=== PATIENT | female | born 1950 | race Hispanic/Latino ===

== ENCOUNTER 2017-08-10 21:26 | Emergency (ER) | payer BC, MEDICARE ==
--- NOTE | 2017-08-10 21:50 | Emergency Department Report ---
ED Neuro Deficit HPI - General Stated Complaint: POSS STROKE Time Seen by Provider: 08/10/17 21:41 Source: patient, EMS Mode of arrival: Stretcher Limitations: Altered Mental Status - History of Present Illness Initial Comments: 66-year-old female with a past medical history of hypertension, TIA, hypothyroidism without alteration in mental status approximately 2 hours prior to arrival. Patient states he came back into the living room and found patient cursing at him and acting abnormal. Upon arrival patient is oriented to self only and able to follow some commands. She denies pain. She is unable to provide any history of present illness only able to answer basic questions with a delay. Patient presents with medication does not appear to be on any anticoagulation meds. There isn't any aspirin at her medication in her bag. - Related Data Home Medications: Previous Rx's Medication Instructions Recorded Last Taken Type Ibuprofen [Motrin] 600 mg PO Q8H PRN #40 tablet 04/03/15 Unknown Rx traMADol [Ultram] 50 mg PO Q6HR PRN #20 tablet 04/03/15 Unknown Rx Allergies/Adverse Reactions: Allergies Allergy/AdvReac Type Severity Reaction Status Date / Time No Known Allergies Allergy Unverified 04/03/15 15:19 ED Review of Systems ROS: Stated complaint: POSS STROKE Other details as noted in HPI Comment: Unobtainable due to pts medical conditions ED Past Medical Hx - Past Medical History Hx Hypertension: Yes Hx CVA: Yes Additional medical history: THYROID - Surgical History Hx Breast Surgery: Yes (RIGHT MASTECTOMY) Additional Surgical History: RIGHT EAR - Social History Smoking Status: Current Every Day Smoker Substance Use Type: None - Medications Home Medications: Home Medications Medication Instructions Recorded Confirmed Last Taken Type Ibuprofen [Motrin] 600 mg PO Q8H PRN #40 tablet 04/03/15 Unknown Rx traMADol [Ultram] 50 mg PO Q6HR PRN #20 tablet 04/03/15 Unknown Rx ED Neuro Physical Exam - General General appearance: alert Suspected Stroke: Yes - NIHSS Assessment Interval: Baseline 1a. Level of Consciousness: alert 1b. LOC Questions: answers 1 question correctly 1c. LOC Commands: performs 1 task correctly 2. Best Gaze: forced deviation 3. Visual: partial hemianopia (right eye does not blink on confrontation) 4. Facial Palsy: normal symmetrical movement 5b. Motor Arm Right: some gravity effort 5a. Motor Arm Left: no drift 6a. Motor Leg Left: no drift 6b. Motor Leg Right: some gravity effort 7. Limb Ataxia: absent 8. Sensory: normal (grossly) 9. Best Language: no aphasia 10. Dysarthria: mild/moderate dysarthria 11. Extinction/Inattention: no abnormality Total Score: 10 Stroke Severity: Moderate Stroke - Other Other exam information: General: No limitations, patient is alert in no acute distress Head exam: Atraumatic, normocephalic Eyes exam: Normal appearance, pupils equal reactive to light, left gaze preference not overcome with oculocephalic reflex ENT: Moist mucous membrane, normal oropharynx Neck exam: Normal inspection, full range of motion, no meningismus nontender Respiratory exam: Clear to auscultation bilateral, no wheezes, rales, crackles Cardiovascular: Normal rate and rhythm, normal heart sounds Abdomen: Soft, nondistended, and nontender, with normal bowel sounds, no rebound, or guarding Extremity: Full range of motion normal inspection no deformity Back: Normal Inspection, full range of motion, no tenderness Neurologic: Alert, oriented x3, cranial nerves intact, no motor or sensory deficit Psychiatric: normal affect, normal mood Skin: Warm, dry, intact ED Course - Consultations Consultation #1: 08/10/17 22:[address] Gloria on-call account support rep with [facility], [place] was accepted patient for transfer. Awaiting callback from neurosurgeon 08/10/17 22:35 Case d/w Dr Pedroza Neurosurgeon - Lab Data Result diagrams: 08/10/17 21:53 08/10/17 21:53 Lab Results 08/10/17 08/10/17 08/10/17 Range/Units 21:53 21:53 21:53 WBC 13.4 H (4.5-11.0) K/mm3 RBC 5.14 H (3.65-5.03) M/mm3 Hgb 15.6 H (10.1-14.3) gm/dl Hct 48.0 H (30.3-42.9) % MCV 93 (79-97) fl MCH 30 (28-32) pg MCHC 33 (30-34) % RDW 14.8 (13.2-15.2) % Plt Count 365 (140-440) K/mm3 Lymph % (Auto) 8.6 L (13.4-35.0) % [place] % (Auto) 4.5 (0.0-7.3) % Eos % (Auto) 0.0 (0.0-4.3) % Baso % (Auto) 0.5 (0.0-1.8) % Lymph # 1.1 L (1.2-5.4) K/mm3 [place] # 0.6 (0.0-0.8) K/mm3 Eos # 0.0 (0.0-0.4) K/mm3 Baso # 0.1 (0.0-0.1) K/mm3 Seg Neutrophils % 86.4 H (40.0-70.0) % Seg Neutrophils # 11.6 H (1.8-7.7) K/mm3 PT 12.5 (12.2-14.9) Sec. INR 0.89 (0.87-1.13) APTT 26.9 (24.2-36.6) Sec. Thrombin Time 16.4 (15.1-19.6) Sec. Sodium 143 (137-145) mmol/L Potassium 4.2 (3.6-5.0) mmol/L Chloride 100.2 (98-107) mmol/L Carbon Dioxide 29 (22-30) mmol/L Anion Gap 18 mmol/L BUN 15 (7-17) mg/dL Creatinine 0.7 (0.7-1.2) mg/dL Estimated GFR > 60 ml/min BUN/Creatinine Ratio 21 % Glucose 131 H (65-100) mg/dL Calcium 10.5 H (8.4-10.2) mg/dL Troponin T < 0.010 (0.00-0.029) ng/mL - EKG Data -: EKG Interpreted by [facility] EKG shows normal: sinus rhythm, axis (qrs 43), QRS complexes (qrsd 90), ST-T waves (minimal diffuse st depression) Rate: normal (93) When compared to previous EKG there are: previous EKG unavailable - Radiology Data Radiology results: report reviewed CT head noncontrast irregular hyperdense fluid collection in the left parietal occipital region is consistent with intracerebral hemorrhage with extension into the left lateral ventricle. Additional foci of hyperdensity are also consistent with acute hemorrhages involving bilateral occipital and high parietal regions - Medical Decision Making altered mental status secondary to intracerebral hemorrhage At this time patient is alert and protecting her airway therefore was not intubated Cardene drip initiated for blood pressure control with goal of systolic 150 Keppra 1 g given for seizure prophylaxis Patient has been accepted to [facility] [place] - Differential Diagnosis ischemic stroke, hemorrhagic stroke, seizure, encephalopathy Critical Care Time: Yes Critical care time in (mins) excluding proc time.: 35 Critical care attestation.: If time is entered above; I have spent that time in minutes in the direct care of this critically ill patient, excluding procedure time. ED Disposition Clinical Impression: Intracerebral hemorrhage, Uncontrolled hypertension, Neurological deficit present Disposition: DC/TX-70 ANOTHER TYPE HLTHCARE Is pt being admited?: No Condition: Stable Time of Disposition: 22:26 (accepted [facility], Dr Gloria/Kasia)
[2017-08-10] MEDS ORDERED: KEPPRA 1,000 MG/NS 0.75% 100ML 1,000 MG/100 ML BAG IV ONE (22:00)
[2017-08-10] MEDS ORDERED: CARDENE 50 MG in NACL 0.9% 250ML 230 ML IV SCH (22:00)
[2017-08-10 22:12] LABS: Basophils # (Auto) 0.1 K/mm3 (0.0-0.1); Basophils % (Auto) 0.5 % (0.0-1.8); Hemoglobin 15.6 gm/dl (10.1-14.3); Lymphocytes # (Auto) 1.1 K/mm3 (1.2-5.4); Lymphocytes % (Auto) 8.6 % (13.4-35.0); Mean Corpuscular HGB Conc 33 % (30-34); Mean Corpuscular Hemoglobin 30 pg (28-32); Mean Corpuscular Volume 93 fl (79-97); Monocytes # (Auto) 0.6 K/mm3 (0.0-0.8); Monocytes % (Auto) 4.5 % (0.0-7.3); Platelet Count 365 K/mm3 (140-440); Red Blood Count 5.14 M/mm3 (3.65-5.03); Red Cell Distribution Width 14.8 % (13.2-15.2)
[2017-08-10 22:19] LABS: INR 0.89 (0.87-1.13); Partial Thromboplastin Time 26.9 Sec. (24.2-36.6)
[2017-08-10 22:20] LABS: Thrombin Time 16.4 Sec. (15.1-19.6)
[2017-08-10 22:22] LABS: BUN/Creatinine Ratio 21; Blood Urea Nitrogen 15 mg/dL (7-17); Calcium 10.5 mg/dL (8.4-10.2); Hemolysis Index 17
[2017-08-11] MEDS ORDERED: ZOFRAN ONE (00:38)
[2017-08-11 01:19] VITALS: BP 188/97
[2017-08-11] MEDS ORDERED: ZOFRAN IV ONE (01:19)
--- NOTE | 2017-08-11 09:56 | Cat Scan Report ---
FINAL REPORT PROCEDURE: CT HEAD WO CONTRAST TECHNIQUE: Computerized tomography of the head was performed without contrast material. HISTORY: RT SIDE WEAKNESS, STROKE PROTOCOL COMPARISON: No prior studies are available for comparison. FINDINGS: An irregular hyperdense fluid collection is noted in the left posterior parieto-occipital region with mild degree mass effect on the surrounding brain parenchyma. It is extending into the left ventricular atrium and occipital horn. Small irregular hyperdense lesions are also noted in bilateral occipital lobes measuring 0.9 centimeters on the left and 0.7 centimeters on the right. Additional small hyperdense foci are noted involving bilateral high parietal gyri. Visualized bilateral paranasal sinuses and mastoid air cells are clear. Bones are intact.. Moderate degree bilateral cerebral non specific white matter hypodensity is noted most likely representing chronic microangiopathy. IMPRESSION: Irregular hyperdense fluid collection in the left parieto-occipital region is consistent with the intra cerebral hemorrhage with the extension into left lateral ventricle. Additional foci of hyperdensity are also consistent with acute hemorrhages involving bilateral occipital and high parietal regions.
== END 2017-08-11 00:40 | disposition other institution (70) ==
LOC: ED 21:26
DX: I61.9 Nontraumatic intracerebral hemorrhage, unspecified (principal); I10 Essential (primary) hypertension; R29.818 Other symptoms and signs involving the nervous system; F17.200 Nicotine dependence, unspecified, uncomplicated; Z90.11 Acquired absence of right breast and nipple
CPT/HCPCS: 36415; 70450; 80048; 84484; 85025; 85610; 85670; 85730; 93005; 93010; 96365; 96366; 96368; 96375; 99291; J1953; J2405; J7050

== ENCOUNTER 2017-12-09 17:50 | Emergency (ER) | payer MEDICARE ==
[~2017-12-09 17:50] MED LIST: AMIDATE IV ONE; ZEMURON IV ONE
[2017-12-09] MEDS ORDERED: NACL 0.9% 1000 ML 1,000 ML IV ONE (18:21)
[2017-12-09 18:47] LABS: Hematocrit 51.5 % (30.3-42.9); Hemoglobin 16.8 gm/dl (10.1-14.3); Mean Corpuscular HGB Conc 33 % (30-34); Mean Corpuscular Hemoglobin 31 pg (28-32); Mean Corpuscular Volume 94 fl (79-97); Platelet Count 438 K/mm3 (140-440); Red Cell Distribution Width 13.7 % (13.2-15.2)
--- NOTE | 2017-12-09 19:09 | Emergency Department Report ---
ED N/V/D HPI - General Chief complaint: Nausea/Vomiting/Diarrhea Stated complaint: VOMITING 2XDAYS Time Seen by Provider: 12/09/17 19:09 Source: family, EMS Mode of arrival: Stretcher Limitations: Other - History of Present Illness Initial comments: Patient has been having a sudden onset of nausea and vomiting since yesterday. The family took her to her primary doctor today and her WBC count was 22,000 at the clinic. Patients doctor recommend taking her to the emergency room. Patients daughter also said the patient has been more altered than usual since yesterday and she has been vomiting. Patient has a baseline history of dementia and cannot give medical history at this time. MD complaint: nausea, vomiting -: Sudden Description of Vomiting: bilious Associated Abdominal Pain: No Severity: Unable to Determine Improves with: none Worsens with: none Associated Symptoms: loss of appetite, nausea/vomiting - Related Data Home Medications Medication Instructions Recorded Confirmed Last Taken Levothyroxine 75 mcg PO DAILY 08/10/17 08/10/17 Unknown Lisinopril 10 mg PO DAILY 08/10/17 08/10/17 Unknown Zolpidem 5 mg PO HS PRN 08/10/17 08/10/17 Unknown Allergies Allergy/AdvReac Type Severity Reaction Status Date / Time No Known Allergies Allergy Unverified 12/09/17 18:21 ED Review of Systems ROS: Stated complaint: VOMITING 2XDAYS Other details as noted in HPI Comment: Unobtainable due to pts medical conditions Gastrointestinal: nausea, vomiting Neurological: confusion, other (Altered mental status) ED Past Medical Hx - Past Medical History Previous Medical History?: Yes Hx Hypertension: Yes Hx CVA: Yes Hx Dementia: Yes Additional medical history: Hep C, hyperlipidemia, hypothyroidism - Surgical History Past Surgical History?: Yes Hx Breast Surgery: Yes (RIGHT MASTECTOMY) Additional Surgical History: RIGHT EAR - Social History Smoking Status: Former Smoker Substance Use Type: None - Medications Home Medications: Home Medications Medication Instructions Recorded Confirmed Last Taken Type Levothyroxine 75 mcg PO DAILY 08/10/17 08/10/17 Unknown History Lisinopril 10 mg PO DAILY 08/10/17 08/10/17 Unknown History Zolpidem 5 mg PO HS PRN 08/10/17 08/10/17 Unknown History ED Physical Exam - General Limitations: Altered Mental Status, Other General appearance: alert, lethargic - Head Head exam: Present: atraumatic, normocephalic, normal inspection - Eye Eye exam: Present: normal appearance Pupils: Present: normal accommodation - ENT ENT exam: Present: mucous membranes dry - Neck Neck exam: Present: normal inspection, full ROM. Absent: tenderness - Respiratory Respiratory exam: Present: normal lung sounds bilaterally. Absent: respiratory distress - Cardiovascular Cardiovascular Exam: Present: normal rhythm, tachycardia, normal heart sounds - GI/Abdominal GI/Abdominal exam: Present: soft, normal bowel sounds. Absent: distended, tenderness, guarding, rebound, rigid - Rectal Rectal exam: Present: deferred - Extremities Exam Extremities exam: Present: normal inspection, full ROM, normal capillary refill - Back Exam Back exam: Present: normal inspection, full ROM - Neurological Exam Neurological exam: Present: alert, altered, other (Disoriented. GCS = 10) - Psychiatric Psychiatric exam: Present: flat affect - Skin Skin exam: Present: warm, dry, intact, normal color. Absent: rash ED Course Vital Signs 12/09/17 12/09/17 12/09/17 18:11 19:15 21:39 Temperature 97.6 F 100.7 F H Pulse Rate 88 103 H 104 H Respiratory 16 25 H 15 Rate Blood Pressure 166/101 Blood Pressure 169/116 165/95 [Left] O2 Sat by Pulse 93 96 100 Oximetry 12/09/17 22:36 Temperature Pulse Rate 134 H Respiratory 16 Rate Blood Pressure Blood Pressure 160/102 [Left] O2 Sat by Pulse 100 Oximetry - Consultations Consultation #1: 12/09/17 22:59 I consulted the Neuro ICU doctor oncology social worker Dr Timmons. He recommend transferring patient to [facility] for higher level of care. - Intubation Time Out Performed: Yes Sedative: Etomidate Mg Given: 10 Paralytic: Rocuronium Mg Given: 70 Laryngoscope: Robinson Size: 4 Assist Device Used: other (Glidescope) ET Tube Size: 7 Tube Secured Depth (cm): 22 Tube Secured Location: lips Tube Placement Confirmation: visualized tube passing t, equal breath sounds bilat, no breath sounds over epi, confirmation by capnometr Patient Tolerated Procedure: well Intubation Complications: none ED Medical Decision Making - Lab Data Result diagrams: 12/09/17 18:30 12/09/17 19:48 Lab Results 10/23/18 10/23/18 10/23/18 Range/Units 18:30 18:30 19:23 WBC 21.9 H (4.5-11.0) K/mm3 RBC 5.50 H (3.65-5.03) M/mm3 Hgb 16.8 H (10.1-14.3) gm/dl Hct 51.5 H (30.3-42.9) % MCV 94 (79-97) fl MCH 31 (28-32) pg MCHC 33 (30-34) % RDW 13.7 (13.2-15.2) % Plt Count 438 (140-440) K/mm3 Add Manual Diff Complete Total Counted 200 Seg Neuts % (Manual) 89.5 H (40.0-70.0) % Band Neutrophils % 0 % Lymphocytes % (Manual) 6.5 L (13.4-35.0) % Reactive Lymphs % (Man) 0 % Monocytes % (Manual) 3.5 (0.0-7.3) % Eosinophils % (Manual) 0 (0.0-4.3) % Basophils % (Manual) 0 (0.0-1.8) % Metamyelocytes % 0.5 % Myelocytes % 0 % Promyelocytes % 0 % Blast Cells % 0 % Nucleated RBC % Not Reportable Seg Neutrophils # Man 19.6 H (1.8-7.7) K/mm3 Band Neutrophils # 0.0 K/mm3 Lymphocytes # (Manual) 1.4 (1.2-5.4) K/mm3 Abs React Lymphs (Man) 0.0 K/mm3 Monocytes # (Manual) 0.8 (0.0-0.8) K/mm3 Eosinophils # (Manual) 0.0 (0.0-0.4) K/mm3 Basophils # (Manual) 0.0 (0.0-0.1) K/mm3 Metamyelocytes # 0.1 K/mm3 Myelocytes # 0.0 K/mm3 Promyelocytes # 0.0 K/mm3 Blast Cells # 0.0 K/mm3 WBC Morphology Not Reportable Hypersegmented Neuts Not Reportable Hyposegmented Neuts Not Reportable Hypogranular Neuts Not Reportable Smudge Cells Not Reportable Toxic Granulation Not Reportable Toxic Vacuolation Not Reportable Dohle Bodies Not Reportable Pelger-Huet Anomaly Not Reportable Ulices Rods Not Reportable Platelet Estimate Consistent w auto Clumped Platelets Not Reportable Plt Clumps, EDTA Not Reportable Large Platelets Not Reportable Giant Platelets Not Reportable Platelet Satelliting Not Reportable Plt Morphology Comment Not Reportable RBC Morphology Not Reportable Dimorphic RBCs Not Reportable Polychromasia Not Reportable Hypochromasia Not Reportable Poikilocytosis Not Reportable Anisocytosis Not Reportable Microcytosis Not Reportable Macrocytosis Not Reportable Spherocytes Not Reportable Pappenheimer Bodies Not Reportable Sickle Cells Not Reportable Target Cells Not Reportable Tear Drop Cells Not Reportable Ovalocytes Not Reportable Helmet Cells Not Reportable [place]-Stevens Bodies Not Reportable [place] Rings Not Reportable Otilia Cells Not Reportable Bite Cells Not Reportable Crenated Cell Not Reportable Elliptocytes Not Reportable Acanthocytes (Spur) Not Reportable Rouleaux Not Reportable Hemoglobin C Crystals Not Reportable Schistocytes Not Reportable Malaria parasites Not Reportable Yahir Bodies Not Reportable Hem Pathologist Commnt No APTT (24.2-36.6) Sec. D-Dimer (0-234) ng/mlDDU Sodium 143 (137-145) mmol/L Potassium 4.4 (3.6-5.0) mmol/L Chloride 99.5 (98-107) mmol/L Carbon Dioxide 27 (22-30) mmol/L Anion Gap 21 mmol/L BUN 11 (7-17) mg/dL Creatinine 0.5 L (0.7-1.2) mg/dL Estimated GFR > 60 ml/min BUN/Creatinine Ratio 22 % Glucose 153 H (65-100) mg/dL Lactic Acid (0.7-2.0) mmol/L Calcium 10.5 H (8.4-10.2) mg/dL Magnesium (1.7-2.3) mg/dL Total Bilirubin 0.70 (0.1-1.2) mg/dL AST 29 (5-40) units/L ALT 14 (7-56) units/L Alkaline Phosphatase 95 (35-129) units/L Troponin T 0.224 H* (0.00-0.029) ng/mL Total Protein 9.1 H (6.3-8.2) g/dL Albumin 5.1 H (3.9-5) g/dL Albumin/Globulin Ratio 1.3 % Triglycerides < 9 (2-149) mg/dL Cholesterol 136 (50-199) mg/dL LDL Cholesterol Direct 69 (50-130) mg/dL HDL Cholesterol 53 (40-59) mg/dL Cholesterol/HDL Ratio 2.56 % Lipase 28 (13-60) units/L Urine Color (Yellow) Urine Turbidity (Clear) Urine pH (5.0-7.0) Ur Specific [place] (1.003-1.030) Urine Protein (Negative) mg/dL Urine Glucose (UA) (Negative) mg/dL Urine Ketones (Negative) mg/dL Urine Blood (Negative) Urine Nitrite (Negative) Urine Bilirubin (Negative) Urine Urobilinogen (<2.0) mg/dL Ur Leukocyte Esterase (Negative) Urine WBC (Auto) (0.0-6.0) /HPF Urine RBC (Auto) (0.0-6.0) /HPF Urine Mucus /HPF 12/09/17 12/09/17 12/09/17 Range/Units 19:35 19:48 19:48 WBC (4.5-11.0) K/mm3 RBC (3.65-5.03) M/mm3 Hgb (10.1-14.3) gm/dl Hct (30.3-42.9) % MCV (79-97) fl MCH (28-32) pg MCHC (30-34) % RDW (13.2-15.2) % Plt Count (140-440) K/mm3 Add Manual Diff Total Counted Seg Neuts % (Manual) (40.0-70.0) % Band Neutrophils % % Lymphocytes % (Manual) (13.4-35.0) % Reactive Lymphs % (Man) % Monocytes % (Manual) (0.0-7.3) % Eosinophils % (Manual) (0.0-4.3) % Basophils % (Manual) (0.0-1.8) % Metamyelocytes % % Myelocytes % % Promyelocytes % % Blast Cells % % Nucleated RBC % Seg Neutrophils # Man (1.8-7.7) K/mm3 Band Neutrophils # K/mm3 Lymphocytes # (Manual) (1.2-5.4) K/mm3 Abs React Lymphs (Man) K/mm3 Monocytes # (Manual) (0.0-0.8) K/mm3 Eosinophils # (Manual) (0.0-0.4) K/mm3 Basophils # (Manual) (0.0-0.1) K/mm3 Metamyelocytes # K/mm3 Myelocytes # K/mm3 Promyelocytes # K/mm3 Blast Cells # K/mm3 WBC Morphology Hypersegmented Neuts Hyposegmented Neuts Hypogranular Neuts Smudge Cells Toxic Granulation Toxic Vacuolation Dohle Bodies Pelger-Huet Anomaly Ulices Rods Platelet Estimate Clumped Platelets Plt Clumps, EDTA Large Platelets Giant Platelets Platelet Satelliting Plt Morphology Comment RBC Morphology Dimorphic RBCs Polychromasia Hypochromasia Poikilocytosis Anisocytosis Microcytosis Macrocytosis Spherocytes Pappenheimer Bodies Sickle Cells Target Cells Tear Drop Cells Ovalocytes Helmet Cells Nj-Stevens Bodies [place] Rings Otilia Cells Bite Cells Crenated Cell Elliptocytes Acanthocytes (Spur) Rouleaux Hemoglobin C Crystals Schistocytes Malaria parasites Yahir Bodies Hem Pathologist Commnt APTT 27.5 (24.2-36.6) Sec. D-Dimer 368.09 H (0-234) ng/mlDDU Sodium (137-145) mmol/L Potassium (3.6-5.0) mmol/L Chloride (98-107) mmol/L Carbon Dioxide (22-30) mmol/L Anion Gap mmol/L BUN (7-17) mg/dL Creatinine (0.7-1.2) mg/dL Estimated GFR ml/min BUN/Creatinine Ratio % Glucose (65-100) mg/dL Lactic Acid (0.7-2.0) mmol/L Calcium (8.4-10.2) mg/dL Magnesium (1.7-2.3) mg/dL Total Bilirubin (0.1-1.2) mg/dL AST (5-40) units/L ALT (7-56) units/L Alkaline Phosphatase (35-129) units/L Troponin T 0.213 H* (0.00-0.029) ng/mL Total Protein (6.3-8.2) g/dL Albumin (3.9-5) g/dL Albumin/Globulin Ratio % Triglycerides (2-149) mg/dL Cholesterol (50-199) mg/dL LDL Cholesterol Direct (50-130) mg/dL HDL Cholesterol (40-59) mg/dL Cholesterol/HDL Ratio % Lipase (13-60) units/L Urine Color Yellow (Yellow) Urine Turbidity Slightly-cloudy (Clear) Urine pH 6.0 (5.0-7.0) Ur Specific [place] 1.026 (1.003-1.030) Urine Protein 100 mg/dl (Negative) mg/dL Urine Glucose (UA) Neg (Negative) mg/dL Urine Ketones Neg (Negative) mg/dL Urine Blood Neg (Negative) Urine Nitrite Neg (Negative) Urine Bilirubin Neg (Negative) Urine Urobilinogen 4.0 (<2.0) mg/dL Ur Leukocyte Esterase Neg (Negative) Urine WBC (Auto) 2.0 (0.0-6.0) /HPF Urine RBC (Auto) 6.0 (0.0-6.0) /HPF Urine Mucus 2+ /HPF 12/09/17 12/09/17 12/09/17 Range/Units 19:48 19:48 21:56 WBC (4.5-11.0) K/mm3 RBC (3.65-5.03) M/mm3 Hgb (10.1-14.3) gm/dl Hct (30.3-42.9) % MCV (79-97) fl MCH (28-32) pg MCHC (30-34) % RDW (13.2-15.2) % Plt Count (140-440) K/mm3 Add Manual Diff Total Counted Seg Neuts % (Manual) (40.0-70.0) % Band Neutrophils % % Lymphocytes % (Manual) (13.4-35.0) % Reactive Lymphs % (Man) % Monocytes % (Manual) (0.0-7.3) % Eosinophils % (Manual) (0.0-4.3) % Basophils % (Manual) (0.0-1.8) % Metamyelocytes % % Myelocytes % % Promyelocytes % % Blast Cells % % Nucleated RBC % Seg Neutrophils # Man (1.8-7.7) K/mm3 Band Neutrophils # K/mm3 Lymphocytes # (Manual) (1.2-5.4) K/mm3 Abs React Lymphs (Man) K/mm3 Monocytes # (Manual) (0.0-0.8) K/mm3 Eosinophils # (Manual) (0.0-0.4) K/mm3 Basophils # (Manual) (0.0-0.1) K/mm3 Metamyelocytes # K/mm3 Myelocytes # K/mm3 Promyelocytes # K/mm3 Blast Cells # K/mm3 WBC Morphology Hypersegmented Neuts Hyposegmented Neuts Hypogranular Neuts Smudge Cells Toxic Granulation Toxic Vacuolation Dohle Bodies Pelger-Huet Anomaly Ulices Rods Platelet Estimate Clumped Platelets Plt Clumps, EDTA Large Platelets Giant Platelets Platelet Satelliting Plt Morphology Comment RBC Morphology Dimorphic RBCs Polychromasia Hypochromasia Poikilocytosis Anisocytosis Microcytosis Macrocytosis Spherocytes Pappenheimer Bodies Sickle Cells Target Cells Tear Drop Cells Ovalocytes Helmet Cells Nj-Stevens Bodies [place] Rings Otilia Cells Bite Cells Crenated Cell Elliptocytes Acanthocytes (Spur) Rouleaux Hemoglobin C Crystals Schistocytes Malaria parasites Yahir Bodies Hem Pathologist Commnt APTT (24.2-36.6) Sec. D-Dimer (0-234) ng/mlDDU Sodium 141 (137-145) mmol/L Potassium 3.6 (3.6-5.0) mmol/L Chloride 97.4 L (98-107) mmol/L Carbon Dioxide 27 (22-30) mmol/L Anion Gap 20 mmol/L BUN 11 (7-17) mg/dL Creatinine 0.5 L (0.7-1.2) mg/dL Estimated GFR > 60 ml/min BUN/Creatinine Ratio 22 % Glucose 137 H (65-100) mg/dL Lactic Acid 2.50 H* (0.7-2.0) mmol/L Calcium 10.0 (8.4-10.2) mg/dL Magnesium 2.20 (1.7-2.3) mg/dL Total Bilirubin 0.60 (0.1-1.2) mg/dL AST 30 (5-40) units/L ALT 13 (7-56) units/L Alkaline Phosphatase 91 (35-129) units/L Troponin T (0.00-0.029) ng/mL Total Protein 8.8 H (6.3-8.2) g/dL Albumin 4.9 (3.9-5) g/dL Albumin/Globulin Ratio 1.3 % Triglycerides (2-149) mg/dL Cholesterol (50-199) mg/dL LDL Cholesterol Direct (50-130) mg/dL HDL Cholesterol (40-59) mg/dL Cholesterol/HDL Ratio % Lipase (13-60) units/L Urine Color (Yellow) Urine Turbidity (Clear) Urine pH (5.0-7.0) Ur Specific [place] (1.003-1.030) Urine Protein (Negative) mg/dL Urine Glucose (UA) (Negative) mg/dL Urine Ketones (Negative) mg/dL Urine Blood (Negative) Urine Nitrite (Negative) Urine Bilirubin (Negative) Urine Urobilinogen (<2.0) mg/dL Ur Leukocyte Esterase (Negative) Urine WBC (Auto) (0.0-6.0) /HPF Urine RBC (Auto) (0.0-6.0) /HPF Urine Mucus /HPF 12/09/17 Range/Units 22:04 WBC (4.5-11.0) K/mm3 RBC (3.65-5.03) M/mm3 Hgb (10.1-14.3) gm/dl Hct (30.3-42.9) % MCV (79-97) fl MCH (28-32) pg MCHC (30-34) % RDW (13.2-15.2) % Plt Count (140-440) K/mm3 Add Manual Diff Total Counted Seg Neuts % (Manual) (40.0-70.0) % Band Neutrophils % % Lymphocytes % (Manual) (13.4-35.0) % Reactive Lymphs % (Man) % Monocytes % (Manual) (0.0-7.3) % Eosinophils % (Manual) (0.0-4.3) % Basophils % (Manual) (0.0-1.8) % Metamyelocytes % % Myelocytes % % Promyelocytes % % Blast Cells % % Nucleated RBC % Seg Neutrophils # Man (1.8-7.7) K/mm3 Band Neutrophils # K/mm3 Lymphocytes # (Manual) (1.2-5.4) K/mm3 Abs React Lymphs (Man) K/mm3 Monocytes # (Manual) (0.0-0.8) K/mm3 Eosinophils # (Manual) (0.0-0.4) K/mm3 Basophils # (Manual) (0.0-0.1) K/mm3 Metamyelocytes # K/mm3 Myelocytes # K/mm3 Promyelocytes # K/mm3 Blast Cells # K/mm3 WBC Morphology Hypersegmented Neuts Hyposegmented Neuts Hypogranular Neuts Smudge Cells Toxic Granulation Toxic Vacuolation Dohle Bodies Pelger-Huet Anomaly Ulices Rods Platelet Estimate Clumped Platelets Plt Clumps, EDTA Large Platelets Giant Platelets Platelet Satelliting Plt Morphology Comment RBC Morphology Dimorphic RBCs Polychromasia Hypochromasia Poikilocytosis Anisocytosis Microcytosis Macrocytosis Spherocytes Pappenheimer Bodies Sickle Cells Target Cells Tear Drop Cells Ovalocytes Helmet Cells Nj-Stevens Bodies [place] Rings [place] Cells Bite Cells Crenated Cell Elliptocytes Acanthocytes (Spur) Rouleaux Hemoglobin C Crystals Schistocytes Malaria parasites Yahir Bodies Hem Pathologist Commnt APTT (24.2-36.6) Sec. D-Dimer (0-234) ng/mlDDU Sodium (137-145) mmol/L Potassium (3.6-5.0) mmol/L Chloride (98-107) mmol/L Carbon Dioxide (22-30) mmol/L Anion Gap mmol/L BUN (7-17) mg/dL Creatinine (0.7-1.2) mg/dL Estimated GFR ml/min BUN/Creatinine Ratio % Glucose (65-100) mg/dL Lactic Acid 2.10 H* (0.7-2.0) mmol/L Calcium (8.4-10.2) mg/dL Magnesium (1.7-2.3) mg/dL Total Bilirubin (0.1-1.2) mg/dL AST (5-40) units/L ALT (7-56) units/L Alkaline Phosphatase (35-129) units/L Troponin T (0.00-0.029) ng/mL Total Protein (6.3-8.2) g/dL Albumin (3.9-5) g/dL Albumin/Globulin Ratio % Triglycerides (2-149) mg/dL Cholesterol (50-199) mg/dL LDL Cholesterol Direct (50-130) mg/dL HDL Cholesterol (40-59) mg/dL Cholesterol/HDL Ratio % Lipase (13-60) units/L Urine Color (Yellow) Urine Turbidity (Clear) Urine pH (5.0-7.0) Ur Specific [place] (1.003-1.030) Urine Protein (Negative) mg/dL Urine Glucose (UA) (Negative) mg/dL Urine Ketones (Negative) mg/dL Urine Blood (Negative) Urine Nitrite (Negative) Urine Bilirubin (Negative) Urine Urobilinogen (<2.0) mg/dL Ur Leukocyte Esterase (Negative) Urine WBC (Auto) (0.0-6.0) /HPF Urine RBC (Auto) (0.0-6.0) /HPF Urine Mucus /HPF - EKG Data -: EKG Interpreted by Me EKG shows normal: sinus rhythm Rate: normal (97) - EKG Data When compared to previous EKG there are: previous EKG unavailable Interpretation: nonspecific ST-T wave [place] 12/09/17 21:07 Prolonged QT. No STEMI. - Radiology Data Radiology results: report reviewed, image reviewed CT head showed intracerebral hemorrage. - Medical Decision Making Acute Intracerebral Hemorrage. Patient will be transferred to [facility] for higher level of care and for further evaluation and management. Patient was intubated for airway protection. Critical Care Time: Yes Critical care time in (mins) excluding proc time.: 66 Critical care attestation.: If time is entered above; I have spent that time in minutes in the direct care of this critically ill patient, excluding procedure time. ED Disposition Clinical Impression: Intracerebral hemorrhage, nontraumatic Qualifiers: Cerebral hemorrhage location: cerebral hemisphere, cortical portion Laterality : left Qualified Code(s): I61.1 - Nontraumatic intracerebral hemorrhage in hemisphere, cortical Sepsis Qualifiers: Sepsis type: sepsis due to unspecified organism Qualified Code(s): A41.9 - Sepsis, unspecified organism Altered mental status, unspecified Qualifiers: Altered mental status type: unspecified Qualified Code(s): R41.82 - Altered mental status, unspecified Nausea and vomiting Qualifiers: Vomiting type: unspecified Vomiting Intractability: non-intractable Qualified Code(s): R11.2 - Nausea with vomiting, unspecified Leukocytosis Qualifiers: Leukocytosis type: unspecified Qualified Code(s): D72.829 - Elevated white blood cell count, unspecified Disposition: DC/TX-02 SHRT-TRM GEN HOSP IP Is pt being admited?: No Does the pt Need Aspirin: No Condition: Stable Time of Disposition: 23:07
[2017-12-09 19:10] LABS: Alanine Aminotransferase 14 units/L (7-56); Albumin 5.1 g/dL (3.9-5); BUN/Creatinine Ratio 22; Blood Urea Nitrogen 11 mg/dL (7-17); Calcium 10.5 mg/dL (8.4-10.2); Hemolysis Index 27
[2017-12-09] MEDS ORDERED: ZOFRAN IV ONE (19:16)
[2017-12-09] MEDS ORDERED: NACL 0.9% 500 ML 500 ML IV ONE (19:16)
[2017-12-09] MEDS ORDERED: NACL 0.9% 1000 ML IV ONE (19:33)
[2017-12-09 19:52] LABS: Lipase 28 units/L (13-60)
[2017-12-09] MEDS ORDERED: ZOSYN/NS 3.375GM/50ML 3.375 GM/50 ML BAG IV ONE (20:00)
[2017-12-09 20:02] LABS: Basophils % (Manual) 0 % (0.0-1.8); Eosinophils % (Manual) 0 % (0.0-4.3); Monocytes % (Manual) 3.5 % (0.0-7.3); Platelet Estimate Consistent w Auto; Total Cells Counted 200
[2017-12-09 20:03] LABS: Bilirubin,Urine NEG (Negative); Blood,Urine NEG (Negative); Color,Urine Yellow (Yellow); Mucus,Urine 2+ /HPF
[2017-12-09 20:17] LABS: Partial Thromboplastin Time 27.5 Sec. (24.2-36.6)
[2017-12-09 20:35] LABS: Alanine Aminotransferase 13 units/L (7-56); Albumin 4.9 g/dL (3.9-5); BUN/Creatinine Ratio 22; Blood Urea Nitrogen 11 mg/dL (7-17); Hemolysis Index 12
[2017-12-09 20:38] LABS: LDL Cholesterol,Direct 69 mg/dL (50-130)
[2017-12-09 20:43] LABS: Chol/HDL Ratio 2.56 %; HDL Cholesterol 53 mg/dL (40-59)
[2017-12-09] MEDS ORDERED: BABY ASPIRIN PO ONE (20:49)
[2017-12-09] MEDS ORDERED: NITROSTAT SL ONE (20:52)
--- NOTE | 2017-12-09 20:58 | XRay Report ---
FINAL REPORT PROCEDURE: XR CHEST 1V AP TECHNIQUE: Chest radiograph anteroposterior view. CPT 87836 HISTORY: Sepsis COMPARISON: No prior studies are available for comparison. FINDINGS: Heart: Normal. Mediastinum/Vessels: Normal. Lungs/Pleural space: No infiltrate, effusion, or pneumothorax. Bony thorax: No acute osseous abnormality. Life support devices: None. IMPRESSION: No radiographic evidence of acute cardiopulmonary abnormality.
--- NOTE | 2017-12-09 21:37 | Cat Scan Report ---
FINAL REPORT PROCEDURE: CT HEAD/BRAIN WO CON TECHNIQUE: Computerized tomography of the head was performed without contrast material. HISTORY: AMS COMPARISON: 08/10/2017 FINDINGS: A large area of hyperdense intra cerebral hemorrhage is noted involving the left occipital lobe extending into the left parietal lobe measuring about 5.9 by 3.2 centimeters in AP and transverse dimensions associated with surrounding cerebral edema and effacement of left occipital horn and ventricular trigone. There is extension of hemorrhage into the left temporal horn. Mild degree of hemorrhage is also noted in the right ventricular trigone and right occipital horn. There is shift of midline structures to the right by about 2 millimeters. Suprasellar, prepontine and perimesencephalic cisterns are well maintained. Atherosclerotic calcification is noted involving internal carotid and vertebral arteries. Bilateral paranasal sinuses and mastoid air cells are clear. Bones are intact. IMPRESSION: Findings are consistent with large acute intracerebral hematoma involving left occipital lobe predominantly extending into the left parietal lobe. There is associated intraventricular hemorrhage as described above.
[2017-12-09] MEDS ORDERED: KEPPRA 1,000 MG/NS 0.75% 100ML 1,000 MG/100 ML BAG IV ONE (22:14)
[2017-12-09] MEDS ORDERED: DIPRIVAN 10 MG/ML 1,000 MG/100 ML BOTTLE IV ONE (22:32)
[2017-12-09] MEDS ORDERED: NORMODYNE IV ONE (22:51)
[2017-12-09] MEDS ORDERED: DIPRIVAN 10 MG/ML 1,000 MG/100 ML BOTTLE IV SCH (23:00)
--- NOTE | 2017-12-09 23:31 | XRay Report ---
FINAL REPORT PROCEDURE: XR ABDOMEN 1V AP TECHNIQUE: Abdominal radiograph, single supine AP view. HISTORY: OG tube placement COMPARISON: No prior studies are available for comparison. FINDINGS: Bowel gas pattern:Nonobstructive. Masses or calcifications:None. Bony structures:No significant abnormality. Other:An orogastric tube is identified terminating in the stomach. IMPRESSION: Orogastric tube is terminating in the stomach Nonspecific intestinal gas pattern
--- NOTE | 2017-12-09 23:31 | XRay Report ---
FINAL REPORT PROCEDURE: XR CHEST 1V AP TECHNIQUE: Chest radiograph anteroposterior view. CPT 24201 HISTORY: ETT placement COMPARISON: 12/09/2017 12:18 a.m. FINDINGS: Heart: Normal. Mediastinum/Vessels: Normal. Lungs/Pleural space: Normal. Bony thorax: No acute osseous abnormality. Life support devices: An endotracheal tube is identified terminating at the level of 3.7 centimeters above the terra. IMPRESSION: No acute pulmonary process Endotracheal tube is terminating about 3.7 centimeters above the terra.
[2017-12-10 00:04] VITALS: BP 175/114
[2017-12-10] MEDS ORDERED: SUBLIMAZE IV ONE (00:14)
== END 2017-12-10 00:54 | disposition short-term general hospital (02) ==
LOC: ED 17:50
DX: I61.1 Nontraumatic intracerebral hemorrhage in hemisphere, cortical (principal); A41.9 Sepsis, unspecified organism; R41.82 Altered mental status, unspecified; D72.829 Elevated white blood cell count, unspecified; I11.0 Hypertensive heart disease with heart failure; I50.9 Heart failure, unspecified; Z86.73 Personal history of transient ischemic attack (TIA), and cerebral infarction without residual deficits; Z87.891 Personal history of nicotine dependence
CPT/HCPCS: 31500; 36415; 70450; 71045; 74018; 80053; 80061; 81001; 82140; 82962; 83690; 83735; 84484; 85007; 85025; 85379; 85730; 87040; 93005; 93010; 94002; 96365; 96367; 96375; 99291; J1953; J2405; J2543; J2704; J3010; J7030

== ENCOUNTER 2020-07-01 00:56 | Inpatient (IN) | payer MEDICARE ==
[2020-07-01] MEDS ORDERED: AZITHROMYCIN/NS 500 MG/250 ML 500 MG/250 ML BAG IV ONE (01:14)
[2020-07-01] MEDS ORDERED: IPRATROPIUM 0.02% NEBU 2.5 ML IH ONE (01:14)
[2020-07-01] MEDS ORDERED: methylPREDNISolone Sod Succinate 125 MG/2 ML INJ IV ONE (01:14)
[2020-07-01] MEDS ORDERED: ALBUTEROL 2.5 MG/3 ML NEBU IH ONE (01:14)
--- NOTE | 2020-07-01 01:18 | Emergency Department Report ---
ED Altered Mental Status HPI - General Chief Complaint: Pain General Stated Complaint: AMS/CRAMPS PUI?: No Time Seen by Provider: 07/01/20 01:12 Source: EMS Mode of arrival: Stretcher Limitations: Altered Mental Status, Physical Limitation - History of Present Illness Initial Comments: Patient is a 69-year-old female that presents emergency room with complaints of altered mental status. Patient brought in by EMS. EMS states that family reports that the patient was sleeping and woke up screaming and mentioning leg cramps. Patient has a history of COPD dementia, CVA, hypertension. Patient screaming out and able to answer questions. Patient essentially nonverbal. MD Complaint: altered mental status, confusion - Related Data Home Medications Medication Instructions Recorded Confirmed Last Taken Levothyroxine 75 mcg PO DAILY 08/10/17 08/10/17 Unknown Lisinopril 10 mg PO DAILY 08/10/17 08/10/17 Unknown Zolpidem 5 mg PO HS PRN 08/10/17 08/10/17 Unknown Allergies Allergy/AdvReac Type Severity Reaction Status Date / Time No Known Allergies Allergy Unverified 12/09/17 18:21 ED Review of Systems ROS: Stated complaint: AMS/CRAMPS Other details as noted in HPI ED Past Medical Hx - Past Medical History Previous Medical History?: Yes Hx Hypertension: Yes Hx CVA: Yes Hx Dementia: Yes Additional medical history: Hep C, hyperlipidemia, hypothyroidism - Surgical History Past Surgical History?: Yes Hx Breast Surgery: Yes (RIGHT MASTECTOMY) Additional Surgical History: RIGHT EAR - Social History Smoking Status: Former Smoker Substance Use Type: None - Medications Home Medications: Home Medications Medication Instructions Recorded Confirmed Last Taken Type Levothyroxine 75 mcg PO DAILY 08/10/17 08/10/17 Unknown History Lisinopril 10 mg PO DAILY 08/10/17 08/10/17 Unknown History Zolpidem 5 mg PO HS PRN 08/10/17 08/10/17 Unknown History ED Physical Exam - General Limitations: Altered Mental Status, Physical Limitation General appearance: alert, in no apparent distress - Head Head exam: Present: atraumatic, normocephalic - Eye Eye exam: Present: normal appearance, PERRL Pupils: Present: normal accommodation - ENT ENT exam: Present: mucous membranes dry - Neck Neck exam: Present: normal inspection - Respiratory Respiratory exam: Present: normal lung sounds bilaterally, wheezes. Absent: respiratory distress, rales - Cardiovascular Cardiovascular Exam: Present: regular rate, normal rhythm. Absent: systolic murmur, diastolic murmur, rubs, gallop - GI/Abdominal GI/Abdominal exam: Present: soft, normal bowel sounds. Absent: distended, tenderness - Extremities Exam Extremities exam: Present: normal inspection - Back Exam Back exam: Present: normal inspection - Neurological Exam Neurological exam: Present: alert, altered - Skin Skin exam: Present: warm, dry, intact, normal color. Absent: rash - Assessment Assessment Interval: Baseline - Level of Consciousness 1a. Level of Consciousness: alert/keenly responsive - LOC Questions 1b. LOC Questions: answers no questions correctly - LOC Command 1c. LOC Commands: performs no tasks correctly - Best Gaze 2. Best Gaze: normal - Visual 3. Visual: no visual loss - Facial Palsy 4. Facial Palsy: normal symmetrical movement - Motor Arm 5a. Motor Arm Left: no drift 5b. Motor Arm Right: no drift - Motor Leg 6a. Motor Leg Left: no drift 6b. Motor Leg Right: no drift - Limb Ataxia 7. Limb Ataxia: absent - Sensory 8. Sensory: normal - Best Language 9. Best Language: no aphasia - Dysarthria 10. Dysarthria: normal - Extinction and Inattention 11. Extinction/Inattention: no abnormality - Scoring Total Score: 4 Stroke Severity: Minor Stroke ED Course Vital Signs 07/01/20 07/01/20 07/01/20 01:07 01:50 02:01 Temperature 98.2 F Pulse Rate 79 72 Pulse Rate [ 75 Bilateral Throughout] Respiratory 22 20 Rate Respiratory 17 Rate [Bilateral Throughout] Blood Pressure 130/94 Blood Pressure 142/80 [Left] O2 Sat by Pulse 85 96 Oximetry 07/01/20 07/01/20 07/01/20 02:09 02:45 03:01 Temperature 98.1 F Pulse Rate 75 Pulse Rate [ Bilateral Throughout] Respiratory 19 15 Rate Respiratory Rate [Bilateral Throughout] Blood Pressure 130/94 129/74 Blood Pressure [Left] O2 Sat by Pulse 99 96 Oximetry 07/01/20 07/01/20 07/01/20 03:15 03:31 03:45 Temperature Pulse Rate 72 69 Pulse Rate [ Bilateral Throughout] Respiratory 18 18 19 Rate Respiratory Rate [Bilateral Throughout] Blood Pressure 129/74 129/74 129/74 Blood Pressure [Left] O2 Sat by Pulse 92 96 97 Oximetry 07/01/20 07/01/20 07/01/20 03:53 04:01 04:11 Temperature Pulse Rate Pulse Rate [ Bilateral Throughout] Respiratory Rate Respiratory Rate [Bilateral Throughout] Blood Pressure 129/74 129/74 Blood Pressure [Left] O2 Sat by Pulse 96 90 86 Oximetry 07/01/20 04:52 Temperature 97.7 F Pulse Rate Pulse Rate [ Bilateral Throughout] Respiratory 16 Rate Respiratory Rate [Bilateral Throughout] Blood Pressure 132/73 Blood Pressure [Left] O2 Sat by Pulse Oximetry - Reevaluation(s) Reevaluation #1: Patient on oxygen. Patient received steroids antibiotics and the patient has decreased the amount of screaming. Patient's oxygen is better. Patient's vital signs are stable. 07/01/20 02:03 Reevaluation #2: I discussed all results with family. I discussed plan of care with family. Family agrees with plan of care and admission. Patient to be admitted to the hospitalist service. 07/01/20 03:34 - Consultations Consultation #1: Hospitalist consulted for admission. Hospitalist to admit patient. 07/01/20 03:34 - Lab Data Result diagrams: 07/01/20 01:32 07/01/20 01:32 Lab Results 07/01/20 07/01/20 07/01/20 Range/Units 01:32 01:32 01:32 WBC 12.2 H (4.5-11.0) K/mm3 RBC 4.61 (3.65-5.03) M/mm3 Hgb 14.5 H (10.1-14.3) gm/dl Hct 42.5 (30.3-42.9) % MCV 92 (79-97) fl MCH 31 (28-32) pg MCHC 34 (30-34) % RDW 14.7 (13.2-15.2) % Plt Count 339 (140-440) K/mm3 Lymph % (Auto) 14.6 (13.4-35.0) % [place] % (Auto) 9.8 H (0.0-7.3) % Eos % (Auto) 2.4 (0.0-4.3) % Baso % (Auto) 0.9 (0.0-1.8) % Lymph # (Auto) 1.8 (1.2-5.4) K/mm3 [place] # (Auto) 1.2 H (0.0-0.8) K/mm3 Eos # (Auto) 0.3 (0.0-0.4) K/mm3 Baso # (Auto) 0.1 (0.0-0.1) K/mm3 Seg Neutrophils % 72.3 H (40.0-70.0) % Seg Neutrophils # 8.8 H (1.8-7.7) K/mm3 Sodium 142 (137-145) mmol/L Potassium 4.0 (3.6-5.0) mmol/L Chloride 104.1 (98-107) mmol/L Carbon Dioxide 27 (22-30) mmol/L Anion Gap 15 mmol/L BUN 13 (7-17) mg/dL Creatinine 0.6 (0.6-1.2) mg/dL Estimated GFR > 60 ml/min BUN/Creatinine Ratio 22 % Glucose 111 H (65-100) mg/dL Lactic Acid 2.70 H* (0.7-2.0) mmol/L Calcium 9.0 (8.4-10.2) mg/dL Total Bilirubin 0.20 (0.1-1.2) mg/dL AST 13 (5-40) units/L ALT 11 (7-56) units/L Alkaline Phosphatase 91 (35-129) units/L Ammonia (25-60) umol/L Total Creatine Kinase (30-135) units/L Troponin T (0.00-0.029) ng/mL Total Protein 7.5 (6.3-8.2) g/dL Albumin 4.0 (3.9-5) g/dL Albumin/Globulin Ratio 1.1 % 07/01/20 07/01/20 07/01/20 Range/Units 01:32 01:32 03:16 WBC (4.5-11.0) K/mm3 RBC (3.65-5.03) M/mm3 Hgb (10.1-14.3) gm/dl Hct (30.3-42.9) % MCV (79-97) fl MCH (28-32) pg MCHC (30-34) % RDW (13.2-15.2) % Plt Count (140-440) K/mm3 Lymph % (Auto) (13.4-35.0) % [place] % (Auto) (0.0-7.3) % Eos % (Auto) (0.0-4.3) % Baso % (Auto) (0.0-1.8) % Lymph # (Auto) (1.2-5.4) K/mm3 [place] # (Auto) (0.0-0.8) K/mm3 Eos # (Auto) (0.0-0.4) K/mm3 Baso # (Auto) (0.0-0.1) K/mm3 Seg Neutrophils % (40.0-70.0) % Seg Neutrophils # (1.8-7.7) K/mm3 Sodium (137-145) mmol/L Potassium (3.6-5.0) mmol/L Chloride (98-107) mmol/L Carbon Dioxide (22-30) mmol/L Anion Gap mmol/L BUN (7-17) mg/dL Creatinine (0.6-1.2) mg/dL Estimated GFR ml/min BUN/Creatinine Ratio % Glucose (65-100) mg/dL Lactic Acid 1.70 (0.7-2.0) mmol/L Calcium (8.4-10.2) mg/dL Total Bilirubin (0.1-1.2) mg/dL AST (5-40) units/L ALT (7-56) units/L Alkaline Phosphatase (35-129) units/L Ammonia 17.0 L (25-60) umol/L Total Creatine Kinase 45 (30-135) units/L Troponin T < 0.010 (0.00-0.029) ng/mL Total Protein (6.3-8.2) g/dL Albumin (3.9-5) g/dL Albumin/Globulin Ratio % - EKG Data -: EKG Interpreted by Me EKG shows normal: sinus rhythm, axis, intervals, QRS complexes, ST-T waves Rate: normal - Radiology Data Radiology results: report reviewed, image reviewed interpreted by me: Chest x-ray: No pneumonia, no pneumothorax, no foreign body, no osseous findings, no acute findings CHEST 1 VIEW 07/01/2020 1:25 AM INDICATION / CLINICAL INFORMATION: Altered Mental Status. COMPARISON: One view of the chest from 12/09/2017. FINDINGS: SUPPORT DEVICES: None. HEART / MEDIASTINUM: No significant abnormality. LUNGS / PLEURA: Probable scarring/atelectasis is noted along the right upper lobe. The lungs are otherwise clear. No significant pleural effusion. No pneumothorax. ADDITIONAL FINDINGS: No significant additional findings. IMPRESSION: 1. No acute abnormality of the chest. CT HEAD WITHOUT CONTRAST INDICATION : Altered Mental Status. TECHNIQUE: Axial, coronal and sagittal CT imaging was performed from the skull apex through the skull base without contrast. All CT scans at this location are performed using CT dose reduction for [place] by means of automated exposure control. COMPARISON: CT head without contrast from 12/09/2017. FINDINGS: PARENCHYMA: No mass, midline shift, hemorrhage, extraaxial collection or acute territorial infarction. Rico atrophy is noted with extensive areas of low attenuation along the periventricular and deep white matter, consistent with chronic microvascular ischemic changes. Encephalomalacia is noted along the left posterior parietal and occipital regions. VENTRICLES: Similar secondary to atrophy. No acute abnormality. SOFT TISSUES: No significant abnormality of the included soft tissues/orbits. BONES: No acute osseous abnormality. SINUSES: No significant abnormality. ADDITIONAL FINDINGS: None. IMPRESSION: 1. No acute intracranial abnormality. 2. Additional findings as above. - Medical Decision Making Patient is a 69-year-old female that presents emergency room with complaints of altered mental status, screaming out, possible leg cramps. Patient has severe dementia. Patient is normally nonverbal. Patient found to be hypoxic and had wheezes throughout the lung [place]. Patient given steroids, Zithromax and DuoNeb. Patient's mentation improved slightly and patient was screaming out less after steroids and DuoNeb and oxygen. Patient had a chest x-ray which was negative for acute findings. Patient had labs done which were negative except f or a mildly elevated WBC and lactic acidosis. Patient had a CT scan done for altered mental status. Patient CT was negative for acute findings. Patient was given a low-dose Geodon in order to aid in a adequate CT scan. Patient admitted to the hospital service for further evaluation and treatment. Critical care time documented due to the multiple reassessments, prolonged time at the bedside, interpretation of diagnostics and labs. - Differential Diagnosis ams, UTI, COPD exacerbation, hypoxia, pneumonia, electrolyte imbalance Critical Care Time: Yes Critical care time in (mins) excluding proc time.: 35 Critical care attestation.: If time is entered above; I have spent that time in minutes in the direct care of this critically ill patient, excluding procedure time. Critical Care Time: 35 minutes ED Disposition Clinical Impression: COPD exacerbation, Lactic acid acidosis Respiratory failure Qualifiers: Chronicity: acute Respiratory failure complication: hypoxia Qualified Code(s): J96.01 - Acute respiratory failure with hypoxia Altered mental state Qualifiers: Altered mental status type: unspecified Qualified Code(s): R41.82 - Altered mental status, unspecified Disposition: DC-09 OP ADMIT IP TO THIS HOSP Is pt being admited?: Yes Does the pt Need Aspirin: No Condition: Critical Time of Disposition: 03:12
[2020-07-01 01:43] LABS: Bacteria,Urine 1+ /HPF (Negative); Bilirubin,Urine NEG (Negative); Blood,Urine NEG (Negative); Color,Urine Yellow (Yellow); Mucus,Urine 3+ /HPF; Protein,Urine <15 mg/dL mg/dL (Negative)
--- NOTE | 2020-07-01 01:52 | XRay Report ---
CHEST 1 VIEW 07/01/2020 1:25 AM INDICATION / CLINICAL INFORMATION: Altered Mental Status. COMPARISON: One view of the chest from 12/09/2017. FINDINGS: SUPPORT DEVICES: None. HEART / MEDIASTINUM: No significant abnormality. LUNGS / PLEURA: Probable scarring/atelectasis is noted along the right upper lobe. The lungs are othe rwise clear. No significant pleural effusion. No pneumothorax. ADDITIONAL FINDINGS: No significant additional findings. IMPRESSION: 1. No acute abnormality of the chest. Signer Name: Jaxson Dangelo MD Signed: 07/01/2020 1:48 AM Workstation Name: [id number]
[2020-07-01 02:05] LABS: Basophils # (Auto) 0.1 K/mm3 (0.0-0.1); Basophils % (Auto) 0.9 % (0.0-1.8); Eosinophils # (Auto) 0.3 K/mm3 (0.0-0.4); Eosinophils % (Auto) 2.4 % (0.0-4.3); Hematocrit 42.5 % (30.3-42.9); Hemoglobin 14.5 gm/dl (10.1-14.3); Lymphocytes # (Auto) 1.8 K/mm3 (1.2-5.4); Lymphocytes % (Auto) 14.6 % (13.4-35.0); Mean Corpuscular HGB Conc 34 % (30-34); Mean Corpuscular Volume 92 fl (79-97); Monocytes # (Auto) 1.2 K/mm3 (0.0-0.8); Monocytes % (Auto) 9.8 % (0.0-7.3); Platelet Count 339 K/mm3 (140-440); Red Blood Count 4.61 M/mm3 (3.65-5.03); Red Cell Distribution Width 14.7 % (13.2-15.2)
[2020-07-01 02:19] LABS: Alanine Aminotransferase 11 units/L (7-56); Blood Urea Nitrogen 13 mg/dL (7-17); Hemolysis Index 8
[2020-07-01 02:22] LABS: BUN/Creatinine Ratio 22
[2020-07-01] MEDS ORDERED: ZIPRASIDONE MESYLATE 20 MG VIAL IM ONE (03:25)
[2020-07-01] MEDS ORDERED: WATER FOR INJ Sterile (PF) 10 ML ONE (03:42)
[2020-07-01] MEDS ORDERED: MAGNESIUM HYDROXIDE (MOM) ORAL LIQD UDC PO PRN (04:11)
[2020-07-01] MEDS ORDERED: ACETAMINOPHEN 325 MG TAB PO PRN (04:11)
[2020-07-01] MEDS ORDERED: MORPHINE 2 MG/1 ML INJ IV PRN (04:11)
[2020-07-01] MEDS ORDERED: ONDANSETRON 4 MG/2 ML INJ IV PRN (04:11)
--- NOTE | 2020-07-01 04:24 | History and Physical Report ---
History of Present Illness Date of examination: 07/01/20 Date of admission: 07/01/20 03:35 Chief complaint: Altered Mental Status History of present illness: 69-year-old female brought into the emergency room by EMS for altered mental status. Patient was said to have been screaming complaining of leg cramps. Patient has significant history of COPD, dementia, hypertension and CVA. Most of the history was given by a significant other who was by the bedside. According to today significant other, patient was said to have had a 4 few years ago and had injury to the right knee and since then patient has been complaining of lower extremity pain. There has been no fever or chills, no nausea vomiting, no diarrhea, no constipation, no hematuria. There has been no history of recent travel or sick contacts and no contact with anyone with COVID-19. Upon arrival in the emergency room patient was found to be hypoxic and was given nebulizing treatments and also placed on oxygen. Work-up in the emergency room reveals elevated lactic acid . Urinalysis was unremarkable. CT scan of the head showed chronic microvascular ischemic changes. Chest x-ray showed no acute changes. Urinalysis was negative. ABG was still pending during this dictation. Patient is being admitted with altered mental status, COPD exacerbation with hypoxia. Past History Past Medical History: hypertension, hyperlipidemia (Hep C), hypothyroidism, stroke, other (Dementia, hep C) Past Surgical History: mastectomy (Right mastectomy), Other (Right ear surgery) Social history: smoking (Former smoker) Family history: no significant family history Medications and Allergies Allergies Allergy/AdvReac Type Severity Reaction Status Date / Time No Known Allergies Allergy Unverified 12/09/17 18:21 Home Medications Medication Instructions Recorded Confirmed Last Taken Type Levothyroxine 75 mcg PO DAILY 08/10/17 08/10/17 Unknown History Lisinopril 10 mg PO DAILY 08/10/17 08/10/17 Unknown History Zolpidem 5 mg PO HS PRN 08/10/17 08/10/17 Unknown History Active Meds: Active Medications Acetaminophen (Acetaminophen 325 Mg Tab) 650 mg PO Q4H PRN PRN Reason: Pain MILD(1-3)/Fever >100.5/PA[place] Albuterol/Ipratropium (Ipratropium/Albuterol Sulfate 3 Ml Ampul.Neb) 1 ampul IH Q6HRT DAVID Heparin Sodium (Porcine) (Heparin 5,000 Unit/1 Ml Vial) 5,000 unit SUB-Q Q8HR [facility] Sodium Chloride (Nacl 0.9% 1000 Ml) 1,000 mls @ 75 mls/hr IV DIRECT [facility] Magnesium Hydroxide (Magnesium Hydroxide (Mom) Oral Liqd Udc) 30 ml PO Q4H PRN PRN Reason: Constipation Methylprednisolone Sodium Succinate (Methylprednisolone Sod Succinate 40 Mg/1 Ml Inj) 40 mg IV Q8HR DAVID Morphine Sulfate (Morphine 2 Mg/1 Ml Inj) 2 mg IV Q4H PRN PRN Reason: Pain, Moderate (4-6) Ondansetron HCl (Ondansetron 4 Mg/2 Ml Inj) 4 mg IV Q8H PRN PRN Reason: Nausea And Vomiting Sodium Chloride (Sodium Chloride 0.9% 10 Ml Flush Syringe) 10 ml IV BID DAVID Sodium Chloride (Sodium Chloride 0.9% 10 Ml Flush Syringe) 10 ml IV PRN PRN PRN Reason: LINE FLUSH Review of Systems ROS unobtainable: due to mental status Exam - Constitutional Vitals: Temp Pulse Resp BP Pulse Ox 98.1 F 69 19 129/74 96 07/01/20 02:09 07/01/20 03:45 07/01/20 03:45 07/01/20 03:45 07/01/20 03:53 General appearance: Present: no acute distress, well-nourished - EENT Eyes: Present: PERRL, EOM intact. Absent: scleral icterus ENT: hearing intact, clear oral mucosa, dentition normal - Neck Neck: Present: supple, normal ROM - Respiratory Respiratory effort: normal Respiratory: bilateral: CTA - Cardiovascular Rhythm: regular Heart Sounds: Present: S1 & S2. Absent: gallop, systolic murmur, diastolic murmur, rub, click - Extremities Extremities: no ischemia, pulses intact, pulses symmetrical, No edema, normal temperature, normal color, Full ROM Peripheral Pulses: within normal limits - Abdominal General gastrointestinal: Present: soft, non-tender, non-distended, normal bowel sounds. Absent: mass - Integumentary Integumentary: Present: clear, warm, dry, normal turgor - Musculoskeletal Musculoskeletal: other (Contracted right knee.) - Psychiatric Psychiatric: cooperative, other (Altered.) - Neurologic Neurologic: CNII-XII intact, no focal deficits, moves all extremities - Additional findings Additional findings: Skin: Right hip decubitus ulcer 2x3cm in size, no obvious discharge, surrounding mild erythema. HEART Score - HEART Score Troponin: Troponin T < 0.010 ng/mL (0.00-0.029) 07/01/20 01:32 Results - Labs CBC & Chem 7: 07/01/20 01:32 07/01/20 01:32 Labs: Abnormal lab results 07/01/20 07/01/20 07/01/20 Range/Units 01:32 01:32 01:32 WBC 12.2 H (4.5-11.0) K/mm3 Hgb 14.5 H (10.1-14.3) gm/dl [place] % (Auto) 9.8 H (0.0-7.3) % [place] # (Auto) 1.2 H (0.0-0.8) K/mm3 Seg Neutrophils % 72.3 H (40.0-70.0) % Seg Neutrophils # 8.8 H (1.8-7.7) K/mm3 Glucose 111 H (65-100) mg/dL Lactic Acid 2.70 H* (0.7-2.0) mmol/L Ammonia (25-60) umol/L 07/01/20 Range/Units 01:32 WBC (4.5-11.0) K/mm3 Hgb (10.1-14.3) gm/dl [place] % (Auto) (0.0-7.3) % [place] # (Auto) (0.0-0.8) K/mm3 Seg Neutrophils % (40.0-70.0) % Seg Neutrophils # (1.8-7.7) K/mm3 Glucose (65-100) mg/dL Lactic Acid (0.7-2.0) mmol/L Ammonia 17.0 L (25-60) umol/L Assessment and Plan - Patient Problems (1) Altered mental state Current Visit: Yes Status: Acute Qualifiers: Altered mental status type: unspecified Qualified Code(s): R41.82 - Altered mental status, unspecified Plan to address problem: Etiology unclear. Patient has baseline history of dementia. We will monitor mental status. (2) COPD exacerbation Current Visit: Yes Status: Acute Plan to address problem: Patient placed on nebulizing treatments and IV steroid. She has been placed on oxygen by nasal cannula and will keep O2 saturation greater or equal to 94%. Await ABG . (3) Respiratory failure Current Visit: Yes Status: Acute Qualifiers: Chronicity: acute Respiratory failure complication: hypoxia Qualified Code(s): J96.01 - Acute respiratory failure with hypoxia Plan to address problem: Possibly secondary to COPD exacerbation. We will monitor ABG. Consult will be placed to pulmonology for further evaluation. (4) Lactic acid acidosis Current Visit: Yes Status: Acute Plan to address problem: Resolved with IV fluid hydration. We will monitor chemistry. (5) DVT prophylaxis Current Visit: Yes Status: Acute Plan to address problem: Patient placed on subcutaneous heparin. (6) Full code status Current Visit: Yes Status: Acute Plan to address problem: Patient is a full code.
--- NOTE | 2020-07-01 05:08 | Cat Scan Report ---
CT HEAD WITHOUT CONTRAST INDICATION : Altered Mental Status. TECHNIQUE: Axial, coronal and sagittal CT imaging was performed from the skull apex through the skul l base without contrast. All CT scans at this location are performed using CT dose reduction for ALA RA by means of automated exposure control. COMPARISON: CT head without contrast from 12/09/2017. FINDINGS: PARENCHYMA: No mass, midline shift, hemorrhage, extraaxial collection or acute territorial infarctio n. [place] atrophy is noted with extensive areas of low attenuation along the periventricular and de ep white matter, consistent with chronic microvascular ischemic changes. Encephalomalacia is noted al klar[place] the left posterior parietal and occipital regions. VENTRICLES: Similar secondary to atrophy. No acute abnormality. SOFT TISSUES: No significant abnormality of the included soft tissues/orbits. BONES: No acute osseous abnormality. SINUSES: No significant abnormality. ADDITIONAL FINDINGS: None. IMPRESSION: 1. No acute intracranial abnormality. 2. Additional findings as above. Signer Name: Jaxson Dangelo MD Signed: 07/01/2020 5:03 AM Workstation Name: [id number]
[2020-07-01] MEDS: methylPREDNISolone Sod Succinate 40 MG/1 ML INJ IV SCH ×3 (05:16→21:21)
[2020-07-01] MEDS: HEPARIN 5,000 UNIT/1 ML VIAL SUB-Q SCH ×3 (05:17→21:21)
[2020-07-01] MEDS ORDERED: levETIRAcetam 1,000 MG in DEXTROSE 5% IN WATER 100 ML IV ONE (06:25)
[2020-07-01] MEDS ORDERED: SODIUM BICARB 8.4% 50 MEQ/50 ML SYRINGE IV ONE (06:53)
--- NOTE | 2020-07-01 06:55 | Cat Scan Report ---
CT HEAD WITHOUT CONTRAST INDICATION : AMS. TECHNIQUE: Axial, coronal and sagittal CT imaging was performed from the skull apex through the skul l base without contrast. All CT scans at this location are performed using CT dose reduction for ALA RA by means of automated exposure control. COMPARISON: CT head without contrast from earlier today. FINDINGS: PARENCHYMA: No mass, midline shift, hemorrhage, extraaxial collection or acute territorial infarctio n. The parenchyma is otherwise unchanged from the previous CT had. VENTRICLES: Stable enlargement without acute abnormalities. SOFT TISSUES: No significant abnormality of the included soft tissues/orbits. BONES: No acute osseous abnormality. SINUSES: No significant abnormality. ADDITIONAL FINDINGS: None. IMPRESSION: 1. No acute intracranial abnormality. No significant interval changes. Signer Name: Jaxson Dangelo MD Signed: 07/01/2020 6:51 AM Workstation Name: [id number]
[2020-07-01] MEDS ORDERED: levETIRAcetam 1000 MG/NS 0.75% 1,000 MG/100 ML BAG IV ONE (07:00)
--- NOTE | 2020-07-01 07:02 | Event Note ---
Date: 07/01/20 Attention called to patient was just admitted who was said to have had seizure activity. Appears postictal. There is no history of seizure disorder. Stat Accu-Chek was done which was 159. Repeat CT scan of the head will be done Patient will be started on Keppra and will put on seizure precautions. Consult placed to neurology for evaluation. We will also schedule for EEG.
[2020-07-01] MEDS: IPRATROPIUM/ALBUTEROL SULFATE 3 ML AMPUL.NEB IH SCH ×3 (07:45→19:52)
--- NOTE | 2020-07-01 07:47 | Progress Note ---
Assessment and Plan Assessment and plan: Acute hypoxic respiratory failure COPD exacerbation Metabolic encephalopathy New onset seizure Hypertension Hyperlipidemia History of hepatitis C Hypothyroidism History of CVA History of breast CA with right mastectomy 07/01/2020. Etiology of encephalopathy likely secondary to post ictal state from seizure. CT scan negative x2 with the exception of chronic micro vascular disease. Neurology consultation pending. EEG and MRI of brain ordered. Seizure precautions and AEDs with Keppra. Continue bronchodilators/nebulizers and IV steroids. Supplemental oxygen to maintain sats greater than 92%. Check TSH. Follow-up blood cultures. History Interval history: Patient with a seizure since admission. Hospitalist Physical - Constitutional Vitals: Temp Pulse Resp BP Pulse Ox 97.7 F 69 16 132/73 97 07/01/20 04:52 07/01/20 03:45 07/01/20 04:52 07/01/20 04:52 07/01/20 06:19 General appearance: Present: no acute distress, well-nourished - EENT Eyes: Present: PERRL, EOM intact ENT: hearing intact, clear oral mucosa, dentition normal - Neck Neck: Present: supple, normal ROM - Respiratory Respiratory effort: normal Respiratory: bilateral: CTA - Cardiovascular Rhythm: regular Heart Sounds: Present: S1 & S2. Absent: gallop, rub - Extremities Extremities: no ischemia, No edema, Full ROM - Abdominal General gastrointestinal: soft, non-tender, non-distended, normal bowel sounds - Integumentary Integumentary: Present: clear, warm, dry - Neurologic Neurologic: CNII-XII intact, moves all extremities HEART Score - HEART Score Troponin: Troponin T < 0.010 ng/mL (0.00-0.029) 07/01/20 01:32 Results - Labs CBC & Chem 7: 07/01/20 01:32 07/01/20 01:32 Labs: Laboratory Last Values WBC 12.2 K/mm3 (4.5-11.0) H 07/01/20 01:32 RBC 4.61 M/mm3 (3.65-5.03) 07/01/20 01:32 Hgb 14.5 gm/dl (10.1-14.3) H 07/01/20 01:32 Hct 42.5 % (30.3-42.9) 07/01/20 01:32 MCV 92 fl (79-97) 07/01/20 01:32 MCH 31 pg (28-32) 07/01/20 01:32 MCHC 34 % (30-34) 07/01/20 01:32 RDW 14.7 % (13.2-15.2) 07/01/20 01:32 Plt Count 339 K/mm3 (140-440) 07/01/20 01:32 Lymph % (Auto) 14.6 % (13.4-35.0) 07/01/20 01:32 [place] % (Auto) 9.8 % (0.0-7.3) H 07/01/20 01:32 Eos % (Auto) 2.4 % (0.0-4.3) 07/01/20 01:32 Baso % (Auto) 0.9 % (0.0-1.8) 07/01/20 01:32 Lymph # (Auto) 1.8 K/mm3 (1.2-5.4) 07/01/20 01:32 [place] # (Auto) 1.2 K/mm3 (0.0-0.8) H 07/01/20 01:32 Eos # (Auto) 0.3 K/mm3 (0.0-0.4) 07/01/20 01:32 Baso # (Auto) 0.1 K/mm3 (0.0-0.1) 07/01/20 01:32 Seg Neutrophils % 72.3 % (40.0-70.0) H 07/01/20 01:32 Seg Neutrophils # 8.8 K/mm3 (1.8-7.7) H 07/01/20 01:32 Sodium 142 mmol/L (137-145) 07/01/20 01:32 Potassium 4.0 mmol/L (3.6-5.0) 07/01/20 01:32 Chloride 104.1 mmol/L (98-107) 07/01/20 01:32 Carbon Dioxide 27 mmol/L (22-30) 07/01/20 01:32 Anion Gap 15 mmol/L 07/01/20 01:32 BUN 13 mg/dL (7-17) 07/01/20 01:32 Creatinine 0.6 mg/dL (0.6-1.2) 07/01/20 01:32 Estimated GFR > 60 ml/min 07/01/20 01:32 BUN/Creatinine Ratio 22 % 07/01/20 01:32 Glucose 111 mg/dL (65-100) H 07/01/20 01:32 Lactic Acid 1.70 mmol/L (0.7-2.0) 07/01/20 03:16 Calcium 9.0 mg/dL (8.4-10.2) 07/01/20 01:32 Total Bilirubin 0.20 mg/dL (0.1-1.2) 07/01/20 01:32 AST 13 units/L (5-40) 07/01/20 01:32 ALT 11 units/L (7-56) 07/01/20 01:32 Alkaline Phosphatase 91 units/L (35-129) 07/01/20 01:32 Ammonia 17.0 umol/L (25-60) L 07/01/20 01:32 Total Creatine Kinase 45 units/L (30-135) 07/01/20 01:32 Troponin T < 0.010 ng/mL (0.00-0.029) 07/01/20 01:32 Total Protein 7.5 g/dL (6.3-8.2) 07/01/20 01:32 Albumin 4.0 g/dL (3.9-5) 07/01/20 01:32 Albumin/Globulin Ratio 1.1 % 07/01/20 01:32 Urine Color Yellow (Yellow) 07/01/20 Unknown Urine Turbidity Slightly-cloudy (Clear) 07/01/20 Unknown Urine pH 6.0 (5.0-7.0) 07/01/20 Unknown Ur Specific [place] 1.019 (1.003-1.030) 07/01/20 Unknown Urine Protein <15 mg/dl mg/dL (Negative) 07/01/20 Unknown Urine Glucose (UA) Neg mg/dL (Negative) 07/01/20 Unknown Urine Ketones Neg mg/dL (Negative) 07/01/20 Unknown Urine Blood Neg (Negative) 07/01/20 Unknown Urine Nitrite Neg (Negative) 07/01/20 Unknown Urine Bilirubin Neg (Negative) 07/01/20 Unknown Urine Urobilinogen 2.0 mg/dL (<2.0) 07/01/20 Unknown Ur Leukocyte Esterase Neg (Negative) 07/01/20 Unknown Urine WBC (Auto) 2.0 /HPF (0.0-6.0) 07/01/20 Unknown Urine RBC (Auto) 2.0 /HPF (0.0-6.0) 07/01/20 Unknown U Epithel Cells (Auto) 1.0 /HPF (0-13.0) 07/01/20 Unknown Urine Bacteria (Auto) 1+ /HPF (Negative) 07/01/20 Unknown Urine Mucus 3+ /HPF 07/01/20 Unknown Microbiology: Microbiology 07/01/20 02:03 Peripheral/Venous Blood Culture - Preliminary Culture in Progress 07/01/20 01:32 Peripheral/Venous Blood Culture - Preliminary Culture in Progress Active Medications - Current Medications Current Medications: Generic Name Dose Route Start Last Admin Trade Name Freq PRN Reason Stop Dose Admin Acetaminophen 650 mg 07/01/20 04:11 Acetaminophen 325 Mg Tab PO Q4H PRN Pain MILD(1-3)/Fever >100.5/PAYTON Albuterol/Ipratropium 1 ampul 07/01/20 08:00 Ipratropium/Albuterol Sulfate 3 Ml Ampul.Neb IH Q6HRT DAVID Heparin Sodium (Porcine) 5,000 unit 07/01/20 06:00 07/01/20 05:17 Heparin 5,000 Unit/1 Ml Vial SUB-Q 5,000 unit Q8HR DAVID Administration Sodium Chloride 1,000 mls @ 75 mls/hr 07/01/20 04:15 Nacl 0.9% 1000 Ml IV DIRECT DAVID Lorazepam 2 mg 07/01/20 07:01 Lorazepam 2 Mg/Ml Vial IV Q1H PRN Seizures Magnesium Hydroxide 30 ml 07/01/20 04:11 Magnesium Hydroxide (Mom) Oral Liqd Udc PO Q4H PRN Constipation Methylprednisolone Sodium Succinate 40 mg 07/01/20 06:00 07/01/20 05:16 Methylprednisolone Sod Succinate 40 Mg/1 Ml Inj IV 40 mg Q8HR DAVID Administration Morphine Sulfate 2 mg 07/01/20 04:11 Morphine 2 Mg/1 Ml Inj IV Q4H PRN Pain, Moderate (4-6) Ondansetron HCl 4 mg 07/01/20 04:11 Ondansetron 4 Mg/2 Ml Inj IV Q8H PRN Nausea And Vomiting Sodium Chloride 10 ml 07/01/20 10:00 Sodium Chloride 0.9% 10 Ml Flush Syringe IV BID DAVID Sodium Chloride 10 ml 07/01/20 04:11 Sodium Chloride 0.9% 10 Ml Flush Syringe IV PRN PRN LINE FLUSH
[2020-07-01] MEDS: SODIUM CHLORIDE 0.9% 1000 ML 1,000 ML IV SCH (09:44)
[2020-07-01 10:41] LABS: ABG Base Excess -0.5 mmol/L (-2.0-3.0); ABG HCO3 25.1 mmol/L (20.0-26.0); ABG Methemoglobin 0.5 % (0.0-1.5); ABG Oxygen Saturation 97.1 % (95.0-99.0); ABG PCO2 44.8 mm Hg; ABG PH 7.366 pH Units (7.350-7.450); ABG PO2 93.8 mm Hg (80.0-90.0)
[2020-07-01] MEDS: LORazepam 2 MG/ML VIAL IV PRN (23:37)
[2020-07-02] MEDS: SODIUM CHLORIDE 0.9% 1000 ML 1,000 ML IV SCH ×2 (01:57→14:37)
[2020-07-02] MEDS: IPRATROPIUM/ALBUTEROL SULFATE 3 ML AMPUL.NEB IH SCH ×4 (04:00→20:05)
[2020-07-02] MEDS: methylPREDNISolone Sod Succinate 40 MG/1 ML INJ IV SCH ×3 (05:18→23:18)
[2020-07-02] MEDS: HEPARIN 5,000 UNIT/1 ML VIAL SUB-Q SCH ×3 (05:19→23:19)
--- NOTE | 2020-07-02 07:45 | Progress Note ---
Assessment and Plan Assessment and plan: Acute hypoxic respiratory failure COPD exacerbation Metabolic encephalopathy New onset seizure Hypertension Hyperlipidemia History of hepatitis C Hypothyroidism History of CVA History of breast CA with right mastectomy 07/01/2020. Etiology of encephalopathy likely secondary to post ictal state from seizure. CT scan negative x2 with the exception of chronic microvascular disease. Neurology consultation pending. EEG and MRI of brain ordered. Seizure precautions and AEDs with Keppra. Continue bronchodilators/nebulizers and IV steroids. Supplemental oxygen to maintain sats greater than 92%. Check TSH. Follow-up blood cultures. 07/02/2020. Await EEG and MRI brain. Continue Keppra and Ativan as needed. Patient currently requiring 4 L nasal cannula. Continue bronchodilators/nebu lizers and IV steroids. Supplemental oxygen to maintain sats greater than 92%. Blood cultures negative x24 hours. History Interval history: Patient with a seizure since admission. Hospitalist Physical - Constitutional Vitals: Temp Pulse Resp BP Pulse Ox 98.6 F 98 H 18 144/90 98 07/02/20 04:38 07/02/20 04:38 07/02/20 04:38 07/02/20 04:38 07/02/20 05:42 General appearance: Present: no acute distress, well-nourished - EENT Eyes: Present: PERRL, EOM intact ENT: hearing intact, clear oral mucosa, dentition normal - Neck Neck: Present: supple, normal ROM - Respiratory Respiratory effort: normal Respiratory: bilateral: CTA - Cardiovascular Rhythm: regular Heart Sounds: Present: S1 & S2. Absent: gallop, rub - Extremities Extremities: no ischemia, No edema, Full ROM - Abdominal General gastrointestinal: soft, non-tender, non-distended, normal bowel sounds - Integumentary Integumentary: Present: clear, warm, dry - Neurologic Neurologic: CNII-XII intact, moves all extremities HEART Score - HEART Score Troponin: Troponin T < 0.010 ng/mL (0.00-0.029) 07/01/20 01:32 Results - Labs CBC & Chem 7: 07/01/20 01:32 07/01/20 01:32 Labs: Laboratory Last Values WBC 12.2 K/mm3 (4.5-11.0) H 07/01/20 01:32 RBC 4.61 M/mm3 (3.65-5.03) 07/01/20 01:32 Hgb 14.5 gm/dl (10.1-14.3) H 07/01/20 01:32 Hct 42.5 % (30.3-42.9) 07/01/20 01:32 MCV 92 fl (79-97) 07/01/20 01:32 MCH 31 pg (28-32) 07/01/20 01:32 MCHC 34 % (30-34) 07/01/20 01:32 RDW 14.7 % (13.2-15.2) 07/01/20 01:32 Plt Count 339 K/mm3 (140-440) 07/01/20 01:32 Lymph % (Auto) 14.6 % (13.4-35.0) 07/01/20 01:32 [place] % (Auto) 9.8 % (0.0-7.3) H 07/01/20 01:32 Eos % (Auto) 2.4 % (0.0-4.3) 07/01/20 01:32 Baso % (Auto) 0.9 % (0.0-1.8) 07/01/20 01:32 Lymph # (Auto) 1.8 K/mm3 (1.2-5.4) 07/01/20 01:32 [place] # (Auto) 1.2 K/mm3 (0.0-0.8) H 07/01/20 01:32 Eos # (Auto) 0.3 K/mm3 (0.0-0.4) 07/01/20 01:32 Baso # (Auto) 0.1 K/mm3 (0.0-0.1) 07/01/20 01:32 Seg Neutrophils % 72.3 % (40.0-70.0) H 07/01/20 01:32 Seg Neutrophils # 8.8 K/mm3 (1.8-7.7) H 07/01/20 01:32 ABG pH 7.366 pH Units (7.350-7.450) 07/01/20 10:30 ABG pCO2 44.8 mm Hg 07/01/20 10:30 ABG pO2 93.8 mm Hg (80.0-90.0) H 07/01/20 10:30 ABG HCO3 25.1 mmol/L (20.0-26.0) 07/01/20 10:30 ABG O2 Saturation 97.1 % (95.0-99.0) 07/01/20 10:30 ABG O2 Content 19.5 (0.0-44) 07/01/20 10:30 ABG Base Excess -0.5 mmol/L (-2.0-3.0) 07/01/20 10:30 ABG Hemoglobin 14.5 gm/dl (12.0-16.0) 07/01/20 10:30 ABG Carboxyhemoglobin 1.4 % (0.0-5.0) 07/01/20 10:30 ABG Methemoglobin 0.5 % (0.0-1.5) 07/01/20 10:30 Oxyhemoglobin 95.3 % (95.0-99.0) 07/01/20 10:30 FiO2 32 % 07/01/20 10:30 Sodium 142 mmol/L (137-145) 07/01/20 01:32 Potassium 4.0 mmol/L (3.6-5.0) 07/01/20 01:32 Chloride 104.1 mmol/L (98-107) 07/01/20 01:32 Carbon Dioxide 27 mmol/L (22-30) 07/01/20 01:32 Anion Gap 15 mmol/L 07/01/20 01:32 BUN 13 mg/dL (7-17) 07/01/20 01:32 Creatinine 0.6 mg/dL (0.6-1.2) 07/01/20 01:32 Estimated GFR > 60 ml/min 07/01/20 01:32 BUN/Creatinine Ratio 22 % 07/01/20 01:32 Glucose 111 mg/dL (65-100) H 07/01/20 01:32 POC Glucose 159 mg/dL (70-105) H 07/01/20 06:11 Lactic Acid 1.70 mmol/L (0.7-2.0) 07/01/20 03:16 Calcium 9.0 mg/dL (8.4-10.2) 07/01/20 01:32 Total Bilirubin 0.20 mg/dL (0.1-1.2) 07/01/20 01:32 AST 13 units/L (5-40) 07/01/20 01:32 ALT 11 units/L (7-56) 07/01/20 01:32 Alkaline Phosphatase 91 units/L (35-129) 07/01/20 01:32 Ammonia 17.0 umol/L (25-60) L 07/01/20 01:32 Total Creatine Kinase 45 units/L (30-135) 07/01/20 01:32 Troponin T < 0.010 ng/mL (0.00-0.029) 07/01/20 01:32 Total Protein 7.5 g/dL (6.3-8.2) 07/01/20 01:32 Albumin 4.0 g/dL (3.9-5) 07/01/20 01:32 Albumin/Globulin Ratio 1.1 % 07/01/20 01:32 TSH 0.028 mlU/mL (0.270-4.200) L 07/01/20 10:05 Urine Color Yellow (Yellow) 07/01/20 Unknown Urine Turbidity Slightly-cloudy (Clear) 07/01/20 Unknown Urine pH 6.0 (5.0-7.0) 07/01/20 Unknown Ur Specific [place] 1.019 (1.003-1.030) 07/01/20 Unknown Urine Protein <15 mg/dl mg/dL (Negative) 07/01/20 Unknown Urine Glucose (UA) Neg mg/dL (Negative) 07/01/20 Unknown Urine Ketones Neg mg/dL (Negative) 07/01/20 Unknown Urine Blood Neg (Negative) 07/01/20 Unknown Urine Nitrite Neg (Negative) 07/01/20 Unknown Urine Bilirubin Neg (Negative) 07/01/20 Unknown Urine Urobilinogen 2.0 mg/dL (<2.0) 07/01/20 Unknown Ur Leukocyte Esterase Neg (Negative) 07/01/20 Unknown Urine WBC (Auto) 2.0 /HPF (0.0-6.0) 07/01/20 Unknown Urine RBC (Auto) 2.0 /HPF (0.0-6.0) 07/01/20 Unknown U Epithel Cells (Auto) 1.0 /HPF (0-13.0) 07/01/20 Unknown Urine Bacteria (Auto) 1+ /HPF (Negative) 07/01/20 Unknown Urine Mucus 3+ /HPF 07/01/20 Unknown Microbiology: Microbiology 07/01/20 02:03 Peripheral/Venous Blood Culture - Preliminary NO GROWTH AFTER 24 HOURS 07/01/20 01:32 Peripheral/Venous Blood Culture - Preliminary NO GROWTH AFTER 24 HOURS Marcelo/IV: Voiding Method Incontinent Active Medications - Current Medications Current Medications: Generic Name Dose Route Start Last Admin Trade Name Freq PRN Reason Stop Dose Admin Acetaminophen 650 mg 07/01/20 04:11 07/01/20 22:59 Acetaminophen 325 Mg Tab PO 650 mg Q4H PRN Administration Pain MILD(1-3)/Fever >100.5/PAYTON Albuterol/Ipratropium 1 ampul 07/01/20 08:00 07/02/20 04:00 Ipratropium/Albuterol Sulfate 3 Ml Ampul.Neb IH 1 ampul Q6HRT DAVID Administration Heparin Sodium (Porcine) 5,000 unit 07/01/20 06:00 07/02/20 05:19 Heparin 5,000 Unit/1 Ml Vial SUB-Q 5,000 unit Q8HR DAVID Administration Sodium Chloride 1,000 mls @ 75 mls/hr 07/01/20 04:15 07/02/20 01:57 Nacl 0.9% 1000 Ml IV 75 mls/hr DIRECT DAVID Administration Lorazepam 2 mg 07/01/20 07:01 07/01/20 23:37 Lorazepam 2 Mg/Ml Vial IV 2 mg Q1H PRN Administration Seizures Magnesium Hydroxide 30 ml 07/01/20 04:11 Magnesium Hydroxide (Mom) Oral Liqd Udc PO Q4H PRN Constipation Methylprednisolone Sodium Succinate 40 mg 07/01/20 06:00 07/02/20 05:18 Methylprednisolone Sod Succinate 40 Mg/1 Ml Inj IV 40 mg Q8HR DAVID Administration Morphine Sulfate 2 mg 07/01/20 04:11 Morphine 2 Mg/1 Ml Inj IV Q4H PRN Pain, Moderate (4-6) Ondansetron HCl 4 mg 07/01/20 04:11 Ondansetron 4 Mg/2 Ml Inj IV Q8H PRN Nausea And Vomiting Sodium Chloride 10 ml 07/01/20 10:00 07/01/20 21:22 Sodium Chloride 0.9% 10 Ml Flush Syringe IV 10 ml BID DAVID Administration Sodium Chloride 10 ml 07/01/20 04:11 Sodium Chloride 0.9% 10 Ml Flush Syringe IV PRN PRN LINE FLUSH
[2020-07-02 08:32] LABS: Basophils % (Auto) 0.1 % (0.0-1.8); Hematocrit 42.2 % (30.3-42.9); Lymphocytes # (Auto) 0.8 K/mm3 (1.2-5.4); Lymphocytes % (Auto) 4.9 % (13.4-35.0); Mean Corpuscular HGB Conc 33 % (30-34); Mean Corpuscular Volume 91 fl (79-97); Monocytes # (Auto) 1.1 K/mm3 (0.0-0.8); Monocytes % (Auto) 6.5 % (0.0-7.3); Platelet Count 332 K/mm3 (140-440); Red Blood Count 4.63 M/mm3 (3.65-5.03); Red Cell Distribution Width 15.1 % (13.2-15.2)
[2020-07-02 08:42] LABS: INR 0.98 (0.87-1.13)
[2020-07-02 08:52] LABS: Blood Urea Nitrogen 12 mg/dL (7-17); Calcium 8.6 mg/dL (8.4-10.2); Hemolysis Index 12
[2020-07-02 08:53] LABS: BUN/Creatinine Ratio 30
[2020-07-02] MEDS: LORazepam 2 MG/ML VIAL IV PRN (23:25)
[2020-07-03] MEDS: IPRATROPIUM/ALBUTEROL SULFATE 3 ML AMPUL.NEB IH SCH ×4 (02:14→21:48)
[2020-07-03] MEDS: SODIUM CHLORIDE 0.9% 1000 ML 1,000 ML IV SCH (02:35)
[2020-07-03] MEDS: HEPARIN 5,000 UNIT/1 ML VIAL SUB-Q SCH ×3 (05:08→22:05)
[2020-07-03] MEDS: methylPREDNISolone Sod Succinate 40 MG/1 ML INJ IV SCH ×3 (05:08→22:05)
--- NOTE | 2020-07-03 07:36 | Progress Note ---
Assessment and Plan Assessment and plan: Acute hypoxic respiratory failure COPD exacerbation Metabolic encephalopathy New onset seizure Hypertension Hyperlipidemia History of hepatitis C Hypothyroidism History of CVA History of breast CA with right mastectomy 07/01/2020. Etiology of encephalopathy likely secondary to post ictal state from seizure. CT scan negative x2 with the exception of chronic microvascular disease. Neurology consultation pending. EEG and MRI of brain ordered. Seizure precautions and AEDs with Keppra. Continue bronchodilators/nebulizers and IV steroids. Supplemental oxygen to maintain sats greater than 92%. Check TSH. Follow-up blood cultures. 07/02/2020. Await EEG and MRI brain. Continue Keppra and Ativan as needed. Patient currently requiring 4 L nasal cannula. Continue bronchodilators/nebu lizers and IV steroids. Supplemental oxygen to maintain sats greater than 92%. Blood cultures negative x24 hours. 07/03/2020. Await EEG and MRI brain. Continue Keppra and Ativan as needed. Await neurology consultation. Patient currently requiring 4 L nasal cannula. Continue bronchodilators/nebulizers and IV steroids. Supplemental oxygen to maintain sats greater than 92%. Blood cultures negative x 48 hours. History Interval history: Patient with a seizure since admission. Hospitalist Physical - Constitutional Vitals: Temp Pulse Resp BP Pulse Ox 97.8 F 103 H 20 150/90 91 07/03/20 04:19 07/03/20 04:19 07/03/20 04:19 07/03/20 04:19 07/03/20 04:19 General appearance: Present: no acute distress, well-nourished - EENT Eyes: Present: PERRL, EOM intact ENT: hearing intact, clear oral mucosa, dentition normal - Neck Neck: Present: supple, normal ROM - Respiratory Respiratory effort: normal Respiratory: bilateral: CTA - Cardiovascular Rhythm: regular Heart Sounds: Present: S1 & S2. Absent: gallop, rub - Extremities Extremities: no ischemia, No edema, Full ROM - Abdominal General gastrointestinal: soft, non-tender, non-distended, normal bowel sounds - Integumentary Integumentary: Present: clear, warm, dry - Neurologic Neurologic: CNII-XII intact, moves all extremities HEART Score - HEART Score Troponin: Troponin T < 0.010 ng/mL (0.00-0.029) 07/01/20 01:32 Results - Labs CBC & Chem 7: 05/16/21 07:57 07/02/20 07:57 Labs: Laboratory Last Values WBC 16.4 K/mm3 (4.5-11.0) H 07/02/20 07:57 RBC 4.63 M/mm3 (3.65-5.03) 07/02/20 07:57 Hgb 14.0 gm/dl (10.1-14.3) 07/02/20 07:57 Hct 42.2 % (30.3-42.9) 07/02/20 07:57 MCV 91 fl (79-97) 07/02/20 07:57 MCH 30 pg (28-32) 07/02/20 07:57 MCHC 33 % (30-34) 07/02/20 07:57 RDW 15.1 % (13.2-15.2) 07/02/20 07:57 Plt Count 332 K/mm3 (140-440) 07/02/20 07:57 Lymph % (Auto) 4.9 % (13.4-35.0) L 07/02/20 07:57 [place] % (Auto) 6.5 % (0.0-7.3) 07/02/20 07:57 Eos % (Auto) 0.0 % (0.0-4.3) 07/02/20 07:57 Baso % (Auto) 0.1 % (0.0-1.8) 07/02/20 07:57 Lymph # (Auto) 0.8 K/mm3 (1.2-5.4) L 07/02/20 07:57 [place] # (Auto) 1.1 K/mm3 (0.0-0.8) H 07/02/20 07:57 Eos # (Auto) 0.0 K/mm3 (0.0-0.4) 07/02/20 07:57 Baso # (Auto) 0.0 K/mm3 (0.0-0.1) 07/02/20 07:57 Seg Neutrophils % 88.5 % (40.0-70.0) H 07/02/20 07:57 Seg Neutrophils # 14.5 K/mm3 (1.8-7.7) H 07/02/20 07:57 PT 12.9 Sec. (12.2-14.9) 07/02/20 07:57 INR 0.98 (0.87-1.13) 07/02/20 07:57 ABG pH 7.366 pH Units (7.350-7.450) 07/01/20 10:30 ABG pCO2 44.8 mm Hg 07/01/20 10:30 ABG pO2 93.8 mm Hg (80.0-90.0) H 07/01/20 10:30 ABG HCO3 25.1 mmol/L (20.0-26.0) 07/01/20 10:30 ABG O2 Saturation 97.1 % (95.0-99.0) 07/01/20 10:30 ABG O2 Content 19.5 (0.0-44) 07/01/20 10:30 ABG Base Excess -0.5 mmol/L (-2.0-3.0) 07/01/20 10:30 ABG Hemoglobin 14.5 gm/dl (12.0-16.0) 07/01/20 10:30 ABG Carboxyhemoglobin 1.4 % (0.0-5.0) 07/01/20 10:30 ABG Methemoglobin 0.5 % (0.0-1.5) 07/01/20 10:30 Oxyhemoglobin 95.3 % (95.0-99.0) 07/01/20 10:30 FiO2 32 % 07/01/20 10:30 Sodium 141 mmol/L (137-145) 07/02/20 07:57 Potassium 4.2 mmol/L (3.6-5.0) 07/02/20 07:57 Chloride 106.3 mmol/L (98-107) 07/02/20 07:57 Carbon Dioxide 25 mmol/L (22-30) 07/02/20 07:57 Anion Gap 14 mmol/L 07/02/20 07:57 BUN 12 mg/dL (7-17) 07/02/20 07:57 Creatinine 0.4 mg/dL (0.6-1.2) L 07/02/20 07:57 Estimated GFR > 60 ml/min 07/02/20 07:57 BUN/Creatinine Ratio 30 % 07/02/20 07:57 Glucose 140 mg/dL (65-100) H 07/02/20 07:57 POC Glucose 159 mg/dL (70-105) H 07/01/20 06:11 Lactic Acid 1.70 mmol/L (0.7-2.0) 07/01/20 03:16 Calcium 8.6 mg/dL (8.4-10.2) 07/02/20 07:57 Total Bilirubin 0.20 mg/dL (0.1-1.2) 07/01/20 01:32 AST 13 units/L (5-40) 07/01/20 01:32 ALT 11 units/L (7-56) 07/01/20 01:32 Alkaline Phosphatase 91 units/L (35-129) 07/01/20 01:32 Ammonia 17.0 umol/L (25-60) L 07/01/20 01:32 Total Creatine Kinase 45 units/L (30-135) 07/01/20 01:32 Troponin T < 0.010 ng/mL (0.00-0.029) 07/01/20 01:32 Total Protein 7.5 g/dL (6.3-8.2) 07/01/20 01:32 Albumin 4.0 g/dL (3.9-5) 07/01/20 01:32 Albumin/Globulin Ratio 1.1 % 07/01/20 01:32 TSH 0.028 mlU/mL (0.270-4.200) L 07/01/20 10:05 Urine Color Yellow (Yellow) 07/01/20 Unknown Urine Turbidity Slightly-cloudy (Clear) 07/01/20 Unknown Urine pH 6.0 (5.0-7.0) 07/01/20 Unknown Ur Specific [place] 1.019 (1.003-1.030) 07/01/20 Unknown Urine Protein <15 mg/dl mg/dL (Negative) 07/01/20 Unknown Urine Glucose (UA) Neg mg/dL (Negative) 07/01/20 Unknown Urine Ketones Neg mg/dL (Negative) 07/01/20 Unknown Urine Blood Neg (Negative) 07/01/20 Unknown Urine Nitrite Neg (Negative) 07/01/20 Unknown Urine Bilirubin Neg (Negative) 07/01/20 Unknown Urine Urobilinogen 2.0 mg/dL (<2.0) 07/01/20 Unknown Ur Leukocyte Esterase Neg (Negative) 07/01/20 Unknown Urine WBC (Auto) 2.0 /HPF (0.0-6.0) 07/01/20 Unknown Urine RBC (Auto) 2.0 /HPF (0.0-6.0) 07/01/20 Unknown U Epithel Cells (Auto) 1.0 /HPF (0-13.0) 07/01/20 Unknown Urine Bacteria (Auto) 1+ /HPF (Negative) 07/01/20 Unknown Urine Mucus 3+ /HPF 07/01/20 Unknown Microbiology: Microbiology 07/01/20 02:03 Peripheral/Venous Blood Culture - Preliminary NO GROWTH AFTER 48 HOURS 07/01/20 01:32 Peripheral/Venous Blood Culture - Preliminary NO GROWTH AFTER 48 HOURS Marcelo/IV: Voiding Method Incontinent Active Medications - Current Medications Current Medications: Generic Name Dose Route Start Last Admin Trade Name Freq PRN Reason Stop Dose Admin Acetaminophen 650 mg 07/01/20 04:11 07/01/20 22:59 Acetaminophen 325 Mg Tab PO 650 mg Q4H PRN Administration Pain MILD(1-3)/Fever >100.5/PAYTON Albuterol/Ipratropium 1 ampul 07/01/20 08:00 07/03/20 02:14 Ipratropium/Albuterol Sulfate 3 Ml Ampul.Neb IH 1 ampul Q6HRT DAVID Administration Heparin Sodium (Porcine) 5,000 unit 07/01/20 06:00 07/03/20 05:08 Heparin 5,000 Unit/1 Ml Vial SUB-Q 5,000 unit Q8HR DAVID Administration Sodium Chloride 1,000 mls @ 75 mls/hr 07/01/20 04:15 07/03/20 02:35 Nacl 0.9% 1000 Ml IV 75 mls/hr DIRECT DAVID Administration Lorazepam 2 mg 07/01/20 07:01 07/02/20 23:25 Lorazepam 2 Mg/Ml Vial IV 2 mg Q1H PRN Administration Seizures Magnesium Hydroxide 30 ml 07/01/20 04:11 Magnesium Hydroxide (Mom) Oral Liqd Udc PO Q4H PRN Constipation Methylprednisolone Sodium Succinate 40 mg 07/01/20 06:00 07/03/20 05:08 Methylprednisolone Sod Succinate 40 Mg/1 Ml Inj IV 40 mg Q8HR DAVID Administration Morphine Sulfate 2 mg 07/01/20 04:11 Morphine 2 Mg/1 Ml Inj IV Q4H PRN Pain, Moderate (4-6) Ondansetron HCl 4 mg 07/01/20 04:11 Ondansetron 4 Mg/2 Ml Inj IV Q8H PRN Nausea And Vomiting Sodium Chloride 10 ml 07/01/20 10:00 07/02/20 23:18 Sodium Chloride 0.9% 10 Ml Flush Syringe IV 10 ml BID DAVID Administration Sodium Chloride 10 ml 07/01/20 04:11 Sodium Chloride 0.9% 10 Ml Flush Syringe IV PRN PRN LINE FLUSH
[2020-07-03] MEDS: LORazepam 2 MG/ML VIAL IV PRN (09:24)
[2020-07-03 10:40] LABS: Hematocrit 41.4 % (30.3-42.9); Hemoglobin 13.5 gm/dl (10.1-14.3); Mean Corpuscular HGB Conc 33 % (30-34); Mean Corpuscular Volume 91 fl (79-97); Platelet Count 369 K/mm3 (140-440); Red Blood Count 4.53 M/mm3 (3.65-5.03); Red Cell Distribution Width 14.7 % (13.2-15.2)
[2020-07-03 10:48] LABS: Blood Urea Nitrogen 14 mg/dL (7-17); Calcium 8.7 mg/dL (8.4-10.2); Hemolysis Index 3
[2020-07-03 10:49] LABS: BUN/Creatinine Ratio 28
[2020-07-03 11:51] LABS: Band Neutrophils # (Manual) 0.2 K/mm3; Platelet Estimate Consistent w Auto; RBC Morphology Normal; Total Cells Counted 100
[2020-07-04] MEDS: methylPREDNISolone Sod Succinate 40 MG/1 ML INJ IV SCH ×3 (05:50→21:49)
[2020-07-04] MEDS: HEPARIN 5,000 UNIT/1 ML VIAL SUB-Q SCH ×3 (05:51→21:49)
--- NOTE | 2020-07-04 08:08 | Consultation ---
History of Present Illness Consult date: 07/03/20 Chief complaint: Confusion History of present illness: The patient was evaluated for acute onset of change in Mental Status . The patient has had history of Dementia. Past History Past Medical History: hypertension, hyperlipidemia (Hep C), hypothyroidism, stroke, other (Dementia, hep C) Past Surgical History: mastectomy (Right mastectomy), Other (Right ear surgery) Social history: smoking (Former smoker) Family history: no significant family history Medications and Allergies Allergies Allergy/AdvReac Type Severity Reaction Status Date / Time No Known Allergies Allergy Unverified 12/09/17 18:21 Home Medications Medication Instructions Recorded Confirmed Last Taken Type Levothyroxine 75 mcg PO DAILY 08/10/17 07/02/20 Unknown History Lisinopril 10 mg PO DAILY 08/10/17 07/02/20 Unknown History Zolpidem 5 mg PO HS PRN 08/10/17 07/02/20 Unknown History Active Meds: Active Medications Acetaminophen (Acetaminophen 325 Mg Tab) 650 mg PO Q4H PRN PRN Reason: Pain MILD(1-3)/Fever >100.5/[place]YTON Last Admin: 07/01/20 22:59 Dose: 650 mg Documented by: Albuterol/Ipratropium (Ipratropium/Albuterol Sulfate 3 Ml Ampul.Neb) 1 ampul IH Q6HRT [facility] Last Admin: 07/03/20 21:48 Dose: 1 ampul Documented by: Heparin Sodium (Porcine) (Heparin 5,000 Unit/1 Ml Vial) 5,000 unit SUB-Q Q8HR DAVID Last Admin: 07/04/20 05:51 Dose: 5,000 unit Documented by: Sodium Chloride (Nacl 0.9% 1000 Ml) 1,000 mls @ 75 mls/hr IV DIRECT [facility] Last Admin: 07/03/20 02:35 Dose: 75 mls/hr Documented by: Lorazepam (Lorazepam 2 Mg/Ml Vial) 2 mg IV Q1H PRN PRN Reason: Seizures Last Admin: 07/03/20 09:24 Dose: 2 mg Documented by: Magnesium Hydroxide (Magnesium Hydroxide (Mom) Oral Liqd Udc) 30 ml PO Q4H PRN PRN Reason: Constipation Methylprednisolone Sodium Succinate (Methylprednisolone Sod Succinate 40 Mg/1 Ml Inj) 40 mg IV Q8HR [facility] Last Admin: 07/04/20 05:50 Dose: 40 mg Documented by: Morphine Sulfate (Morphine 2 Mg/1 Ml Inj) 2 mg IV Q4H PRN PRN Reason: Pain, Moderate (4-6) Last Admin: 07/03/20 08:04 Dose: 2 mg Documented by: Ondansetron HCl (Ondansetron 4 Mg/2 Ml Inj) 4 mg IV Q8H PRN PRN Reason: Nausea And Vomiting Sodium Chloride (Sodium Chloride 0.9% 10 Ml Flush Syringe) 10 ml IV BID DAVID Last Admin: 07/03/20 22:06 Dose: 10 ml Documented by: Sodium Chloride (Sodium Chloride 0.9% 10 Ml Flush Syringe) 10 ml IV PRN PRN PRN Reason: LINE FLUSH Physical Examination - Vital Signs Vital Signs: Vital Signs Temp Pulse Resp BP Pulse Ox 98.2 F 79 22 142/80 85 07/01/20 01:07 07/01/20 01:07 07/01/20 01:07 07/01/20 01:07 07/01/20 01:07 - Physical Exam Narrative exam: The patient is not communicative, moves all 4 extremities on stimulus . Results - Laboratory Findings CBC and BMP: 07/03/20 09:38 07/03/20 09:38 Abnormal Lab Findings: Abnormal Labs 07/01/20 07/01/20 07/01/20 01:32 01:32 01:32 WBC 12.2 H Hgb 14.5 H Lymph % (Auto) [place] % (Auto) 9.8 H Lymph # (Auto) [place] # (Auto) 1.2 H Seg Neutrophils % 72.3 H Seg Neuts % (Manual) Lymphocytes % (Manual) Seg Neutrophils # 8.8 H Seg Neutrophils # Man Lymphocytes # (Manual) ABG pO2 Creatinine Glucose 111 H POC Glucose Lactic Acid 2.70 H* Ammonia TSH 07/01/20 07/01/20 07/01/20 01:32 06:11 10:05 WBC Hgb Lymph % (Auto) [place] % (Auto) Lymph # (Auto) [place] # (Auto) Seg Neutrophils % Seg Neuts % (Manual) Lymphocytes % (Manual) Seg Neutrophils # Seg Neutrophils # Man Lymphocytes # (Manual) ABG pO2 Creatinine Glucose POC Glucose 159 H Lactic Acid Ammonia 17.0 L TSH 0.028 L 07/01/20 07/02/20 07/02/20 10:30 07:57 07:57 WBC 16.4 H Hgb Lymph % (Auto) 4.9 L [place] % (Auto) Lymph # (Auto) 0.8 L [place] # (Auto) 1.1 H Seg Neutrophils % 88.5 H Seg Neuts % (Manual) Lymphocytes % (Manual) Seg Neutrophils # 14.5 H Seg Neutrophils # Man Lymphocytes # (Manual) ABG pO2 93.8 H Creatinine 0.4 L Glucose 140 H POC Glucose Lactic Acid Ammonia TSH 07/03/20 07/03/20 09:38 09:38 WBC 16.4 H Hgb Lymph % (Auto) [place] % (Auto) Lymph # (Auto) [place] # (Auto) Seg Neutrophils % Seg Neuts % (Manual) 91.0 H Lymphocytes % (Manual) 5.0 L Seg Neutrophils # Seg Neutrophils # Man 14.9 H Lymphocytes # (Manual) 0.8 L ABG pO2 Creatinine 0.5 L Glucose 152 H POC Glucose Lactic Acid Ammonia TSH Assessment and Plan 1. Encephalopathy ( multifactorial - including infection /? Seizures could be the possible causes of worsening of Encephalopathy ). 2. Head CT is negative . 3. Awaits EEG and Agree with MRI Brain . 4. Overall underlying issues including Dementia - neurological prognosis is guarded . 5. Generallly following improvement of infections and adjustment of Medications there is a possibility the patient may go back to her base line. call back with questions . Dr. Gutierrez
[2020-07-04] MEDS: IPRATROPIUM/ALBUTEROL SULFATE 3 ML AMPUL.NEB IH SCH (09:36)
[2020-07-04] MEDS ORDERED: ALBUTEROL 2.5 MG/3 ML NEBU IH PRN (09:40)
[2020-07-04] MEDS: LORazepam 2 MG/ML VIAL IV PRN ×3 (09:41→21:48)
--- NOTE | 2020-07-04 10:21 | Progress Note ---
Assessment and Plan Assessment and plan: --Acute hypoxic respiratory failure --COPD exacerbation --Metabolic encephalopathy Multifactorial, postictal state, dementia, underlying seizure activity Multiple medical problems continue supportive care,, neurology following MRI no acute findings chronic changes of atrophy and encephalomalacia Continue supportive care MRI brain; diffuse cerebral atrophy extensive chronic white matter signal abnormality chronic cortical encephalomalacia in the occipital lobes left greater than right findings consistent with hemosiderin deposition both within the areas of cortical encephalomalacia and then more diffuse leptomeningeal distribution leptomeningeal distribution patient leptomeningeal distribution --New onset seizure; no new episodes of seizures since admission Seizure precautions antiepileptic medication, follow MRI and EEG, follow-up private neurology upon discharge --Hypertension; moderate control, continue current antihypertensives as needed medications --Hyperlipidemia; low-cholesterol diet, And statin --History of hepatitis C --Hypothyroidism; on Synthroid/very low TSH at 0.02, probably overcorrection Will hold Synthroid, monitor thyroid functions periodically --History of CVA; with residual weakness --History of breast CA with right mastectomy --DNR status; --Possible DC to hospice[patient was on hospice prior to this admission] will resume services Discharge planning per case management, possible DC to hospice tomorrow if stable Closely monitor patient and adjust management as needed Possible discharge tomorrow if stable 07/01/2020. Etiology of encephalopathy likely secondary to post ictal state from seizure. CT scan negative x2 with the exception of chronic microvascular disease. Neurology consultation pending. EEG and MRI of brain ordered. Seizure precautions and AEDs with Keppra. Continue bronchodilators/nebulizers and IV steroids. Supplemental oxygen to maintain sats greater than 92%. Check TSH. Follow-up blood cultures. 07/02/2020. Await EEG and MRI brain. Continue Keppra and Ativan as needed. Patient currently requiring 4 L nasal cannula. Continue bronchodilators/nebulizers and IV steroids. Supplemental oxygen to maintain sats greater than 92%. Blood cultures negative x24 hours. 07/03/2020. Await EEG and MRI brain. Continue Keppra and Ativan as needed. Await neurology consultation. Patient currently requiring 4 L nasal cannula. Continue bronchodilators/nebulizers and IV steroids. Supplemental oxygen to ma intain sats greater than 92%. Blood cultures negative x 48 hours. 07/04/2020; MRI brain did not show any acute abnormalities, chronic atrophy cortical encephalomalacia , hemosiderin deposits in both within the areas of cortical encephalomalacia, pending EEG, PT and OT, discussed with case managemen t, possible home with home health History Interval history: I have seen and examined the patient at the bedside Patient's chart and medications reviewed Admitted with witnessed seizures Seizure work-up is in progress No new episodes since admission Vital signs noted Hospitalist Physical - Constitutional Vitals: Temp Pulse Resp BP Pulse Ox 98.5 F 100 H 17 158/99 94 07/04/20 05:27 07/04/20 05:45 07/04/20 05:45 07/04/20 05:45 07/04/20 09:38 General appearance: Present: no acute distress, well-nourished - EENT Eyes: Present: PERRL, EOM intact - Neck Neck: Present: supple, normal ROM - Respiratory Respiratory effort: normal Respiratory: bilateral: diminished, negative: rales, rhonchi, wheezing - Cardiovascular Rhythm: regular Heart Sounds: Present: S1 & S2 - Extremities Extremities: no ischemia, No edema - Abdominal General gastrointestinal: soft, non-tender, non-distended, normal bowel sounds - Integumentary Integumentary: Present: clear, warm - Psychiatric Psychiatric: appropriate mood/affect, cooperative - Neurologic Neurologic: moves all extremities HEART Score - HEART Score Troponin: Troponin T < 0.010 ng/mL (0.00-0.029) 07/01/20 01:32 Results - Labs CBC & Chem 7: 07/03/20 09:38 07/03/20 09:38 Labs: Laboratory Last Values WBC 16.4 K/mm3 (4.5-11.0) H 07/03/20 09:38 RBC 4.53 M/mm3 (3.65-5.03) 07/03/20 09:38 Hgb 13.5 gm/dl (10.1-14.3) 07/03/20 09:38 Hct 41.4 % (30.3-42.9) 07/03/20 09:38 MCV 91 fl (79-97) 07/03/20 09:38 MCH 30 pg (28-32) 07/03/20 09:38 MCHC 33 % (30-34) 07/03/20 09:38 RDW 14.7 % (13.2-15.2) 07/03/20 09:38 Plt Count 369 K/mm3 (140-440) 07/03/20 09:38 Lymph % (Auto) 4.9 % (13.4-35.0) L 07/02/20 07:57 [place] % (Auto) 6.5 % (0.0-7.3) 07/02/20 07:57 Eos % (Auto) 0.0 % (0.0-4.3) 07/02/20 07:57 Baso % (Auto) 0.1 % (0.0-1.8) 07/02/20 07:57 Lymph # (Auto) 0.8 K/mm3 (1.2-5.4) L 07/02/20 07:57 [place] # (Auto) 1.1 K/mm3 (0.0-0.8) H 07/02/20 07:57 Eos # (Auto) 0.0 K/mm3 (0.0-0.4) 07/02/20 07:57 Baso # (Auto) 0.0 K/mm3 (0.0-0.1) 07/02/20 07:57 Add Manual Diff Complete 07/03/20 09:38 Total Counted 100 07/03/20 09:38 Seg Neutrophils % [employer] 07/03/20 09:38 Seg Neuts % (Manual) 91.0 % (40.0-70.0) H 07/03/20 09:38 Band Neutrophils % 1.0 % 07/03/20 09:38 Lymphocytes % (Manual) 5.0 % (13.4-35.0) L 07/03/20 09:38 Monocytes % (Manual) 2.0 % (0.0-7.3) 07/03/20 09:38 Metamyelocytes % 1.0 % 07/03/20 09:38 Nucleated RBC % Not Reportable 07/03/20 09:38 Seg Neutrophils # 14.5 K/mm3 (1.8-7.7) H 07/02/20 07:57 Seg Neutrophils # Man 14.9 K/mm3 (1.8-7.7) H 07/03/20 09:38 Band Neutrophils # 0.2 K/mm3 07/03/20 09:38 Lymphocytes # (Manual) 0.8 K/mm3 (1.2-5.4) L 07/03/20 09:38 Abs React Lymphs (Man) 0.0 K/mm3 07/03/20 09:38 Monocytes # (Manual) 0.3 K/mm3 (0.0-0.8) 07/03/20 09:38 Eosinophils # (Manual) 0.0 K/mm3 (0.0-0.4) 07/03/20 09:38 Basophils # (Manual) 0.0 K/mm3 (0.0-0.1) 07/03/20 09:38 Metamyelocytes # 0.2 K/mm3 07/03/20 09:38 Myelocytes # 0.0 K/mm3 07/03/20 09:38 Promyelocytes # 0.0 K/mm3 07/03/20 09:38 Blast Cells # 0.0 K/mm3 07/03/20 09:38 WBC Morphology Not Reportable 07/03/20 09:38 Hypersegmented Neuts Not Reportable 07/03/20 09:38 Hyposegmented Neuts Not Reportable 07/03/20 09:38 Hypogranular Neuts Not Reportable 07/03/20 09:38 Smudge Cells Not Reportable 07/03/20 09:38 Toxic Granulation Not Reportable 07/03/20 09:38 Toxic Vacuolation Not Reportable 07/03/20 09:38 Dohle Bodies Not Reportable 07/03/20 09:38 Pelger-Huet Anomaly Not Reportable 07/03/20 09:38 Ulices Rods Not Reportable 07/03/20 09:38 Platelet Estimate Consistent w auto 07/03/20 09:38 Clumped Platelets Not Reportable 07/03/20 09:38 Plt Clumps, EDTA Not Reportable 07/03/20 09:38 Large Platelets Not Reportable 07/03/20 09:38 Giant Platelets Not Reportable 07/03/20 09:38 Platelet Satelliting Not Reportable 07/03/20 09:38 Plt Morphology Comment Not Reportable 07/03/20 09:38 RBC Morphology Normal 07/03/20 09:38 Dimorphic RBCs Not Reportable 07/03/20 09:38 Polychromasia Not Reportable 07/03/20 09:38 Hypochromasia Not Reportable 07/03/20 09:38 Poikilocytosis Not Reportable 07/03/20 09:38 Anisocytosis Not Reportable 07/03/20 09:38 Microcytosis Not Reportable 07/03/20 09:38 Macrocytosis Not Reportable 07/03/20 09:38 Spherocytes Not Reportable 07/03/20 09:38 Pappenheimer Bodies Not Reportable 07/03/20 09:38 Sickle Cells Not Reportable 07/03/20 09:38 Target Cells Not Reportable 07/03/20 09:38 Tear Drop Cells Not Reportable 07/03/20 09:38 Ovalocytes Not Reportable 07/03/20 09:38 Helmet Cells Not Reportable 07/03/20 09:38 [place] Bodies Not Reportable 07/03/20 09:38 [place] Rings Not Reportable 07/03/20 09:38 [place] Cells Not Reportable 07/03/20 09:38 Bite Cells Not Reportable 07/03/20 09:38 Crenated Cell Not Reportable 07/03/20 09:38 Elliptocytes Not Reportable 07/03/20 09:38 Acanthocytes (Spur) Not Reportable 07/03/20 09:38 Rouleaux Not Reportable 07/03/20 09:38 Hemoglobin C Crystals Not Reportable 07/03/20 09:38 Schistocytes Not Reportable 07/03/20 09:38 Malaria parasites Not Reportable 07/03/20 09:38 Yahir Bodies Not Reportable 07/03/20 09:38 Hem Pathologist Commnt No 07/03/20 09:38 PT 12.9 Sec. (12.2-14.9) 07/02/20 07:57 INR 0.98 (0.87-1.13) 07/02/20 07:57 ABG pH 7.366 pH Units (7.350-7.450) 07/01/20 10:30 ABG pCO2 44.8 mm Hg 07/01/20 10:30 ABG pO2 93.8 mm Hg (80.0-90.0) H 07/01/20 10:30 ABG HCO3 25.1 mmol/L (20.0-26.0) 07/01/20 10:30 ABG O2 Saturation 97.1 % (95.0-99.0) 07/01/20 10:30 ABG O2 Content 19.5 (0.0-44) 07/01/20 10:30 ABG Base Excess -0.5 mmol/L (-2.0-3.0) 07/01/20 10:30 ABG Hemoglobin 14.5 gm/dl (12.0-16.0) 07/01/20 10:30 ABG Carboxyhemoglobin 1.4 % (0.0-5.0) 07/01/20 10:30 ABG Methemoglobin 0.5 % (0.0-1.5) 07/01/20 10:30 Oxyhemoglobin 95.3 % (95.0-99.0) 07/01/20 10:30 FiO2 32 % 07/01/20 10:30 Sodium 138 mmol/L (137-145) 07/03/20 09:38 Potassium 3.8 mmol/L (3.6-5.0) 07/03/20 09:38 Chloride 102.3 mmol/L (98-107) 07/03/20 09:38 Carbon Dioxide 26 mmol/L (22-30) 07/03/20 09:38 Anion Gap 14 mmol/L 07/03/20 09:38 BUN 14 mg/dL (7-17) 07/03/20 09:38 Creatinine 0.5 mg/dL (0.6-1.2) L 07/03/20 09:38 Estimated GFR > 60 ml/min 07/03/20 09:38 BUN/Creatinine Ratio 28 % 07/03/20 09:38 Glucose 152 mg/dL (65-100) H 07/03/20 09:38 POC Glucose 159 mg/dL (70-105) H 07/01/20 06:11 Lactic Acid 1.70 mmol/L (0.7-2.0) 07/01/20 03:16 Calcium 8.7 mg/dL (8.4-10.2) 07/03/20 09:38 Total Bilirubin 0.20 mg/dL (0.1-1.2) 07/01/20 01:32 AST 13 units/L (5-40) 07/01/20 01:32 ALT 11 units/L (7-56) 07/01/20 01:32 Alkaline Phosphatase 91 units/L (35-129) 07/01/20 01:32 Ammonia 17.0 umol/L (25-60) L 07/01/20 01:32 Total Creatine Kinase 45 units/L (30-135) 07/01/20 01:32 Troponin T < 0.010 ng/mL (0.00-0.029) 07/01/20 01:32 Total Protein 7.5 g/dL (6.3-8.2) 07/01/20 01:32 Albumin 4.0 g/dL (3.9-5) 07/01/20 01:32 Albumin/Globulin Ratio 1.1 % 07/01/20 01:32 TSH 0.028 mlU/mL (0.270-4.200) L 07/01/20 10:05 Urine Color Yellow (Yellow) 07/01/20 Unknown Urine Turbidity Slightly-cloudy (Clear) 07/01/20 Unknown Urine pH 6.0 (5.0-7.0) 07/01/20 Unknown Ur Specific [place] 1.019 (1.003-1.030) 07/01/20 Unknown Urine Protein <15 mg/dl mg/dL (Negative) 07/01/20 Unknown Urine Glucose (UA) Neg mg/dL (Negative) 07/01/20 Unknown Urine Ketones Neg mg/dL (Negative) 07/01/20 Unknown Urine Blood Neg (Negative) 07/01/20 Unknown Urine Nitrite Neg (Negative) 07/01/20 Unknown Urine Bilirubin Neg (Negative) 07/01/20 Unknown Urine Urobilinogen 2.0 mg/dL (<2.0) 07/01/20 Unknown Ur Leukocyte Esterase Neg (Negative) 07/01/20 Unknown Urine WBC (Auto) 2.0 /HPF (0.0-6.0) 07/01/20 Unknown Urine RBC (Auto) 2.0 /HPF (0.0-6.0) 07/01/20 Unknown U Epithel Cells (Auto) 1.0 /HPF (0-13.0) 07/01/20 Unknown Urine Bacteria (Auto) 1+ /HPF (Negative) 07/01/20 Unknown Urine Mucus 3+ /HPF 07/01/20 Unknown Microbiology: Microbiology 07/01/20 02:03 Peripheral/Venous Blood Culture - Preliminary NO GROWTH AFTER 72 HOURS 07/01/20 01:32 Peripheral/Venous Blood Culture - Preliminary NO GROWTH AFTER 72 HOURS 07/01/20 Unknown Urine,Clean Catch Urine Culture - Preliminary Marcelo/IV: Voiding Method Diaper Active Medications - Current Medications Current Medications: Generic Name Dose Route Start Last Admin Trade Name Freq PRN Reason Stop Dose Admin Acetaminophen 650 mg 07/01/20 04:11 07/01/20 22:59 Acetaminophen 325 Mg Tab PO 650 mg Q4H PRN Administration Pain MILD(1-3)/Fever >100.5/[place] Albuterol 2.5 mg 07/04/20 09:40 Albuterol 2.5 Mg/3 Ml Nebu IH Q4HRT PRN Shortness Of Breath Arformoterol Tartrate 15 mcg 07/04/20 20:00 Arformoterol 15 Mcg/2 Ml Nebu IH Q12HRT DAVID Budesonide 0.5 mg 07/04/20 20:00 Budesonide 0.5 Mg/2 Ml Nebu IH Q12HRT DAVID Heparin Sodium (Porcine) 5,000 unit 07/01/20 06:00 07/04/20 05:51 Heparin 5,000 Unit/1 Ml Vial SUB-Q 5,000 unit Q8HR DAVID Administration Sodium Chloride 1,000 mls @ 75 mls/hr 07/01/20 04:15 07/03/20 02:35 Nacl 0.9% 1000 Ml IV 75 mls/hr DIRECT DAVID Administration Lorazepam 2 mg 07/01/20 07:01 07/04/20 09:41 Lorazepam 2 Mg/Ml Vial IV 2 mg Q1H PRN Administration Seizures Magnesium Hydroxide 30 ml 07/01/20 04:11 Magnesium Hydroxide (Mom) Oral Liqd Udc PO Q4H PRN Constipation Methylprednisolone Sodium Succinate 40 mg 07/01/20 06:00 07/04/20 05:50 Methylprednisolone Sod Succinate 40 Mg/1 Ml Inj IV 40 mg Q8HR DAVID Administration Morphine Sulfate 2 mg 07/01/20 04:11 07/03/20 08:04 Morphine 2 Mg/1 Ml Inj IV 2 mg Q4H PRN Administration Pain, Moderate (4-6) Ondansetron HCl 4 mg 07/01/20 04:11 Ondansetron 4 Mg/2 Ml Inj IV Q8H PRN Nausea And Vomiting Sodium Chloride 10 ml 07/01/20 10:00 07/04/20 09:27 Sodium Chloride 0.9% 10 Ml Flush Syringe IV 10 ml BID DAVID Administration Sodium Chloride 10 ml 07/01/20 04:11 Sodium Chloride 0.9% 10 Ml Flush Syringe IV PRN PRN LINE FLUSH
--- NOTE | 2020-07-04 12:54 | Magnetic Resonance Report ---
MRI BRAIN 07/04/2020 INDICATION / CLINICAL INFORMATION: Altered mental status. TECHNIQUE: Multiplanar, multisequence MR images of the brain were obtained. COMPARISON: CT brain 07/01/2020 FINDINGS: BRAIN / INTRACRANIAL CONTENTS: Unenhanced MR images of the brain were obtained. Significant patient motion artifact is present on all of these images. There is no definite evidence of acute abnormality, although diffusion-weighted images are significan tly degraded by patient motion artifact. There is prominent diffuse cerebral atrophy and extensive chronic white matter T2 weighted signal [place] nge present. In addition, there is focal encephalomalacia in the occipital lobes bilaterally. On the gradient echo sequence, there is evidence of hemosiderin deposition associated with the area o f left occipital cortical encephalomalacia. 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 This may be an indication of previous diffuse subarachnoid hemorr petros. There is no definite evidence of acute ischemic injury or hemorrhage. There are no abnormal extra-axi al fluid collections. EXTRACRANIAL: Unremarkable CRANIOCERVICAL JUNCTION: No significant abnormality. VASCULAR FLOW-VOIDS: Not well seen IMPRESSION: Prominent diffuse cerebral atrophy. Extensive chronic white matter signal abnormality. Chronic cortical encephalomalacia in the occipital lobes, left greater than right. Findings consistent with hemosiderin deposition both within the areas of cortical encephalomalacia an d in a more diffuse leptomeningeal distribution. Signer Name: Cabrera Springer MD Signed: 07/04/2020 12:49 PM Workstation Name: [id number]
[2020-07-04] MEDS: SODIUM CHLORIDE 0.9% 1000 ML 1,000 ML IV SCH (16:44)
--- NOTE | 2020-07-04 17:38 | Electrocardiograph Report ---
[facility] Test Date: 2020-07-01 Test Time: 02:48:55 Pat Name: CRISTEL CAMARILLO Department: Room: A368 1 Gender: F Technical Sales Representative: DEE : 1950 Requested By: CLAUDIO PRITCHETT III Order Number: [id number] Reading MD: Augustine Dickens Measurements Intervals [place] Rate: 80 P: 66 HI: 121 QRS: 45 QRSD: 86 T: 37 QT: 405 QTc: 467 Interpretive Statements Sinus rhythm Atrial premature complexes No previous ECG available for comparison Electronically Signed On 07-04-2020 17:38:13 EDT by Augustine Dickens
[2020-07-04] MEDS: BUDESONIDE 0.5 MG/2 ML NEBU IH SCH (22:08)
[2020-07-04] MEDS: ARFORMOTEROL 15 MCG/2 ML NEBU IH SCH (22:08)
[2020-07-05 04:04] VITALS: BP 153/90
[2020-07-05] MEDS: SODIUM CHLORIDE 0.9% 1000 ML 1,000 ML IV SCH (05:36)
[2020-07-05] MEDS: HEPARIN 5,000 UNIT/1 ML VIAL SUB-Q SCH ×2 (05:37→13:24)
[2020-07-05] MEDS: methylPREDNISolone Sod Succinate 40 MG/1 ML INJ IV SCH ×2 (05:37→13:24)
[2020-07-05] MEDS: ARFORMOTEROL 15 MCG/2 ML NEBU IH SCH (08:27)
[2020-07-05] MEDS: BUDESONIDE 0.5 MG/2 ML NEBU IH SCH (08:27)
--- NOTE | 2020-07-05 10:35 | Discharge Summary ---
Providers - Providers Date of Admission: 07/03/20 16:25 Date of discharge: 07/05/20 Attending physician: TARA JAUREGUI 07/01/20 04:17 Consult to Wound/ET Nurse [CONS] Routine Reason For Exam: wound eval 07/01/20 06:19 Consult to Physician [CONS] Stat Comment: Consulting Provider: RICH ADAN Physician Instructions: Reason For Exam: Rule out Seizures Primary care physician: [facility], Hospitalization Reason for admission: Altered level of consciousness/ metabolic encephalopathy Condition: Fair Pertinent studies: CT head without contrast; no acute intracranial abnormality MRI brain; prominent diffuse cerebral atrophy, chronic white matter abnormality Findings consistent with hemosiderin deposition both in the area of cortical encephalomalacia and more diffuse leptomeningeal distribution. Chest x-ray no acute abnormality noted Hospital course: 69-year-old female patient was admitted through emergency room with altered level of consciousness and right knee pain. Initial evaluation in the emergency room is consistent with hypoxic respiratory failure requiring supplemental oxygen and nebulizers lactic acidosis CT head without contrast no acute abnormality chest x-ray no abnormality., Patient was admitted managed as COPD exacerbation and metabolic anticoagulopathy Patient was not a candidate for TPA . Acute CVA work-up negative for acute CVA. Acute CVA ruled out, Patient had new onset seizures, placed on seizure precautions and antiepileptic medication, evaluated by neurologist Medications optimized. Patient has history of metastatic breast cancer and patient is DNR status. Hospice has evaluated the patient per patient and family's request Patient is hemodynamically and clinically stable for discharge to hospice Rest of the management per hospice medical staff services manager Discharge diagnosis: --Acute hypoxic respiratory failure --COPD exacerbation --Metabolic encephalopathy Multifactorial, postictal state, dementia, underlying seizure activity Extensive neuro work-up is negative, acute CVA ruled out --New onset seizure; Seizure precautions antiepileptic medication, do not drive until cleared by PMD or neurology --Hypertension; continue current antihypertensives as needed medications --Hyperlipidemia; low-cholesterol diet, And statin --History of hepatitis C --Hypothyroidism; on Synthroid --History of CVA; with residual weakness --History of breast CA with right mastectomy --DNR status; Patient is being discharged to hospice Rest of the management per hospice medical staff services manager Hemodynamically stable guarded prognosis Disposition: DC-50 TO HOSPICE (HOME) Final Discharge Diagnosis (Prints w/discharge instructions): Acute hypoxic respiratory failure. COPD exacerbation. Metabolic encephalopathy. Seizures. Hypertension. Hyperlipidemia. History of hepatitis C. Hypothyroidism. History of CVA. History of breast cancer. DNR status. Hospice Time spent for discharge: 35 min Core Measure Documentation - Palliative Care Palliative Care/ Comfort Measures: Hospice Care - Core Measures Any of the following diagnoses?: none Exam - Constitutional Vitals: Temp Pulse Resp BP Pulse Ox 98.8 F 83 16 153/90 90 07/05/20 04:03 07/05/20 08:32 07/05/20 08:32 07/05/20 04:03 07/05/20 08:31 General appearance: Present: no acute distress, well-nourished - EENT Eyes: Present: PERRL, EOM intact - Neck Neck: Present: supple, normal ROM - Respiratory Respiratory effort: normal Respiratory: bilateral: diminished, negative: rales, rhonchi, wheezing - Cardiovascular Rhythm: regular Heart Sounds: Present: S1 & S2 - Extremities Extremities: no ischemia, No edema - Abdominal General gastrointestinal: Present: soft, non-tender, non-distended, normal bowel sounds - Integumentary Integumentary: Present: clear, warm - Musculoskeletal Musculoskeletal: strength equal bilaterally, generalized weakness - Psychiatric Psychiatric: appropriate mood/affect, cooperative - Neurologic Neurologic: moves all extremities Plan Activity: advance as tolerated, fall precautions, other (Seizure precautions) Diet: regular, advance as tolerated Additional Instructions: Advised to check thyroid function tests in 3 months and resume Synthroid as needed. Further management per product manager medical device Follow up with: JOSEPH CRISTOBAL MD [Primary Care Provider] - 3-5 Days Prescriptions: Fluticasone/Salmeterol [Advair Diskus 250-50 mcg] 1 puff IH BID #1 disk.w.dev levETIRAcetam [Keppra TAB] 500 mg PO BID #60 tablet Prednisone [predniSONE 10 mg (6-Day Pack, 21 Tabs)] 10 mg PO .TAPER #1 tab.ds.pk Albuterol Mdi (or & Nicu Only) [ProAir HFA Inhaler] 2 puff IH QID PRN #8.5 gram PRN Reason: Shortness Of Breath
== END 2020-07-05 16:35 | disposition hospice, home (50) | DRG 100 ==
LOC: ED 00:56 → 3A 03:35 → OBSVTOIN 07-03 16:25
PROVIDERS: ADMIT Internal Medicine Geriatric Medicine; ATTEND Internal Medicine
PROC: 4A033R1 Measurement of Arterial Saturation, Peripheral, Percutaneous Approach (ICD-10-PCS; principal; 2020-07-01)
DX: R56.9 Unspecified convulsions (principal); J96.01 Acute respiratory failure with hypoxia; G93.41 Metabolic encephalopathy; J44.1 Chronic obstructive pulmonary disease with (acute) exacerbation; E87.2 Acidosis; I10 Essential (primary) hypertension; E78.5 Hyperlipidemia, unspecified; F03.90 Unspecified dementia, unspecified severity, without behavioral disturbance, psychotic disturbance, mood disturbance, and anxiety; Z66 Do not resuscitate; Z51.5 Encounter for palliative care; Z86.19 Personal history of other infectious and parasitic diseases; Z85.3 Personal history of malignant neoplasm of breast; Z86.73 Personal history of transient ischemic attack (TIA), and cerebral infarction without residual deficits; Z79.899 Other long term (current) drug therapy; Z79.891 Long term (current) use of opiate analgesic; Z79.01 Long term (current) use of anticoagulants; Z90.11 Acquired absence of right breast and nipple; Z87.891 Personal history of nicotine dependence
CPT/HCPCS: 36415; 36600; 70450; 70551; 71045; 80048; 80053; 81001; 82140; 82550; 82803; 82962; 84443; 84484; 85007; 85025; 85610; 87040; 87086; 93005; 94640; 94644; 96365; 96375; G0378; J0456; J1644; J1953; J2060; J2270; J2920; J2930; J3486; J7030